=== PATIENT | female | born 1960 | race Caucasian/White ===

== ENCOUNTER 2020-03-08 06:27 | Day surgery (SDC) | payer OTHER, SELFPAY ==
--- NOTE | 2020-03-06 08:56 | HO.ANESPROP2 ---
Documented by User: Katharina Thakur 03/06/20 09:00 HPI - Anesthesia Eval Consult details Narrative: 60yo F for EGD and Colonoscopy [facility] Past Medical History Medical History Acid reflux HTN (hypertension) Surgical History Surgical History Hx of tonsillectomy Social History Social History Advance Directives: No Advance Directives Information Provided: No Meds Allergies Allergy/AdvReac Type Severity Reaction Status Date / Time No Known Allergies Allergy Verified 03/06/20 08:59 Home Medications Medication Instructions Recorded Confirmed Type amlodipine 1 tab PO DAILY 03/05/20 03/05/20 History hydrochlorothiazide 1 tab PO DAILY 03/05/20 03/05/20 History losartan 1 tab PO DAILY 03/05/20 03/05/20 History multivitamin 1 tab PO DAILY 03/05/20 03/05/20 History omeprazole 1 cap PO DAILY 03/05/20 03/05/20 History Exam Exam Date and Time: March 06, 2020 0856 Assessment and Plan Assessment Anesthesia Assessment: Chart Reviewed (03/06/20 ) Documented by User: Xena Cano 03/08/20 07:22 [facility] Past Medical History Medical History Acid reflux HTN (hypertension) Surgical History Surgical History Hx of tonsillectomy Social History Social History Advance Directives: No Advance Directives Information Provided: No Meds Allergies Allergy/AdvReac Type Severity Reaction Status Date / Time No Known Allergies Allergy Verified 03/06/20 08:59 Home Medications Medication Instructions Recorded Confirmed Type amlodipine 1 tab PO DAILY 03/05/20 03/05/20 History hydrochlorothiazide 1 tab PO DAILY 03/05/20 03/05/20 History losartan 1 tab PO DAILY 03/05/20 03/05/20 History multivitamin 1 tab PO DAILY 03/05/20 03/05/20 History omeprazole 1 cap PO DAILY 03/05/20 03/05/20 History Exam Airway TM Dist: >3cm Neck ROM: Full Heart: RRR Lungs: CTA BL
[2020-03-08 06:55] VITALS: BP 133/79; PULSE 69; RESP 16; TEMP 36.3; O2SAT 100
[2020-03-08 07:21] VITALS: BMI 28.0
[2020-03-08] MEDS: Lactated Ringers 1,000 ML 50 ML IVCONT (07:31)
--- NOTE | 2020-03-08 07:36 | PC.NURSE ---
NO DRESSINGS. STERILE H2O USED IRRIGATION
[2020-03-08 08:38] VITALS: BP 107/62; PULSE 72; RESP 16; TEMP 36.6; O2SAT 99
[2020-03-08 08:52] VITALS: BP 143/94; PULSE 63; RESP 16; TEMP 36.6; O2SAT 100
--- NOTE | 2020-03-08 08:52 | PM.OP ---
Brief Operative Note Date of procedure: 03/08/20 Pre-op diagnosis: Colon cancer screening Post-op diagnosis: other (Gastritis, colon polyps, diverticulosis) Procedure: FLEXIBLE TRANSORAL UPPER GASTROINTESTINAL ENDOSCOPY AND COLONOSCOPY PROCEDURE NOTE UPPER ENDOSCOPY Consent: Indications for the procedure and potential complications of bleeding, perforation, reaction to medications and missed diagnosis were discussed with the patient and informed consent was obtained. Instrument: Olympus GIF H 190 mid size upper endoscope Monitoring: Vital signs and clinical assessment, continuous EKG monitoring, Pulse oximetry, Carbon Dioxide monitoring and blood pressure monitoring were done throughout the procedure. Procedure: The patient was placed in the left lateral decubitis position and pre-procedure medications were administered and a bite block was placed. The endoscope was inserted into the mouth and advanced under direct vision to the third part of duodenum. A careful inspection was made as the upper endoscope was withdrawn including a retroflexed examination of the proximal stomach; Findings and interventions are described below. Findings: Larynx: Normal Esophagus: GE junction at 40 cms. No esophagitis or Noe s. Stomach: Minimal gastric erythema. Biopsies were obtained. Grade 2 flap valve on retroflexed examination of the cardia. Duodenum: Normal bulb and descending duodenum Intervention: Biopsies as noted above Colonoscopy Instrument: Olympus PCF H 190 L variable stiffness pediatric colonoscope Monitoring: Vital signs and clinical assessment, continuous EKG monitoring, Pulse oximetry, Carbon Dioxide monitoring and blood pressure monitoring were done throughout the procedure. Colon withdrawl time was 18 minutes. Procedure: The patient was placed in the left lateral decubitis position and pre-procedure medications were administered. After a digital rectal examination of the ano-rectum, the video colonoscope was inserted into the rectum and advanced through the colon to the cecum. The colonoscope was slowly withdrawn in a retrograde panoramic fashion and the colon mucosa was carefully examined including a retroflexed view of the rectum. Findings and interventions are described below. Procedure Difficulty: Without difficulty Findings: Terminal Ileum Not evaluated Cecum - A 3-4 mm sessile polyp was removed with the cold biopsy. Ascending Colon - normal Transverse Colon - 4-5 mm diminutive appearing polyp was removed with the cold biopsy And moderate diverticulosis Descending Colon Moderate diverticulosis. Sigmoid Colon Severe diverticulosis with luminal narrowing. Rectum Normal Anorectum - normal Colon preparation: excellent. Impression and Post Procedure Diagnosis: Endoscopy Findings: ESOPHAGUS: No esophagitis or Noe s. STOMACH: Minimal Gastritis. Colonoscopy Findings: Two polyps were removed. Moderate to severe diverticulosis seen in the transverse and left colon Plan: Await pathology results Patient is scheduled for a FU appointment in the GI [facility] on 04/01/20 with ANGEL Stapleton. Repeat Colonoscopy interval based on path results - in 5 years if polyps are adenomatous. Above findings were reviewed with the patient and handout on colon polyps and diverticulosis was provided. Anesthesia: MAC (Dr Pike) Surgeon: Jose White Pathology: other (A. gastric antrum, B. Cecal polyp, C. TC polyp) Condition: stable Disposition: PACU
[2020-03-08 08:53] VITALS: BP 124/74; PULSE 64; RESP 16; O2SAT 100
--- NOTE | 2020-03-08 10:16 | HO.ANESPROP2 ---
[facility] Past Medical History Medical History Acid reflux HTN (hypertension) Surgical History Surgical History Hx of tonsillectomy Social History Social History Advance Directives: No Advance Directives Information Provided: No Meds Allergies Allergy/AdvReac Type Severity Reaction Status Date / Time No Known Allergies Allergy Verified 03/06/20 08:59 Home Medications Medication Instructions Recorded Confirmed Type amlodipine 1 tab PO DAILY 03/05/20 03/05/20 History hydrochlorothiazide 1 tab PO DAILY 03/05/20 03/05/20 History losartan 1 tab PO DAILY 03/05/20 03/05/20 History multivitamin 1 tab PO DAILY 03/05/20 03/05/20 History omeprazole 1 cap PO DAILY 03/05/20 03/05/20 History Exam Exam Date and Time: March 08, 2020 1016 Height,Weight and Vital Signs: Height 5 ft 9 in Weight 86.183 kg Last Vital Signs Temp 97.8 F 03/08/20 08:52 Pulse 64 03/08/20 08:53 Resp 16 03/08/20 08:53 BP 124/74 03/08/20 08:53 Pulse Ox 100 03/08/20 08:53 Assessment and Plan Assessment Anesthesia Assessment: Anesthesia Plan Discussed and Consent Obtained Final Anesthetic Review NPO: Yes ASA Class: II Final Preanesthetic Review: No Changes in Pt Med Stat, Meds & Allergies Reviewed, Consent Obtained/Reviewed and Med/Surg/Anes Hx Reviewed Patient Risk: Low Procedure Risk: Low Anesthetic Plan Anesthetic Plan: MAC: Disposition: Standard PACU
== END 2020-03-08 10:04 | disposition home or self-care (01) ==
PROVIDERS: PCP Internal Medicine; Visit Provider Internal Medicine Gastroenterology
PROC: 0DJD8ZZ Inspection of Lower Intestinal Tract, Via Natural or Artificial Opening Endoscopic (ICD-10-PCS; CPT 45378; principal; 2020-03-08 07:30)
DX: Z12.11 Encounter for screening for malignant neoplasm of colon (principal); D12.0 Benign neoplasm of cecum; K63.5 Polyp of colon; K57.30 Diverticulosis of large intestine without perforation or abscess without bleeding; K21.9 Gastro-esophageal reflux disease without esophagitis; K29.70 Gastritis, unspecified, without bleeding; I10 Essential (primary) hypertension; Z79.899 Other long term (current) drug therapy
CPT/HCPCS: 45380; 88305; 88342

== ENCOUNTER → 2020-04-01 09:35 | Outpatient (BNVA) | payer OTHER, SELFPAY | PROVIDERS: PCP Internal Medicine; Referring Provider Internal Medicine; Visit Provider Physician Assistant | DX: K57.30 Diverticulosis of large intestine without perforation or abscess without bleeding (principal); D12.6 Benign neoplasm of colon, unspecified; K21.9 Gastro-esophageal reflux disease without esophagitis; Z98.890 Other specified postprocedural states | CPT/HCPCS: 99213 ==

== ENCOUNTER 2020-11-13 11:56 | Outpatient (REF) | payer OTHER, SELFPAY ==
--- NOTE | ~2020-11-13 | MM_ITS ---
EXAMINATION: MM SCREENING DIGITAL BREAST TOMOSYNTHESIS, BILATERAL CLINICAL INFORMATION: Screening. Asymptomatic. The lifetime risk of breast cancer based on the Tyrer-Cuzick Model is 10.5%. COMPARISON: Mammography: July 03, 2019 TECHNIQUE: Digital breast tomosynthesis is performed in both the craniocaudal and mediolateral oblique views along with computer-aided detection (CAD). Synthesized 2D images are generated from the tomosynthesis. FINDINGS: The breasts are heterogeneously dense, which may obscure small masses (ACR BI-RADS breast composition Category c). There are no significant masses, abnormal calcifications, or other abnormalities. MM/MM tomosynthesis screening BI IMPRESSION: There are no significant changes from prior study. ASSESSMENT: BI-RADS 1: Negative RECOMMENDATION: Routine annual mammography screening. This patient's information was entered into a reminder system with a target due date for their next mammogram.
== END 2020-11-13 11:57 | disposition home or self-care (01) ==
LOC: HO.MAMMO 11:56
PROVIDERS: Visit Provider Internal Medicine
DX: Z12.31 Encounter for screening mammogram for malignant neoplasm of breast (principal)
CPT/HCPCS: 77063; 77067

== ENCOUNTER 2021-08-27 08:08 | Outpatient (REF) | payer OTHER, SELFPAY ==
--- NOTE | ~2021-08-27 | XR_ITS ---
EXAMINATION: XR KNEE, RIGHT CLINICAL INFORMATION: Posterior right knee pain. COMPARISON: None TECHNIQUE: 4 views of the right knee. FINDINGS: Mild medial compartment joint space narrowing. Tiny tricompartmental marginal osteophytes. No osseous erosion. No fracture or dislocation. Superior patellar enthesophyte. XR/XR knee RT 4V IMPRESSION: Mild tricompartmental osteoarthritis.
[2021-08-27 08:34] LABS: MANUAL DIFF FLAG NO
[2021-08-27 08:45] LABS: Basophils Percent Auto 0.6 % (0-2); Eosinophils Absolute Auto 0.1 X10*3/uL (0.0-0.4); Eosinophils Percent Auto 2.1 % (0-4); Hematocrit 40.1 % (37.0-47.0); Imm Gran Abs Auto 0.02 X10*3/uL (0.00-0.03); Imm Gran Pct Auto 0.3 % (0.0-0.4); Lymphocytes Absolute Auto 1.7 X10*3/uL (1.2-4.9); Lymphocytes Percent Auto 26.2 % (20-40); Mean Corpuscular HGB Conc 32.4 g/dl (31.0-35.0); Mean Corpuscular Hemoglobin 28.6 pg (27.0-33.0); Mean Corpuscular Volume 88.3 fL (80.0-98.0); Mean Platelet Volume 11.6 fL (9.4-12.3); Monocytes Absolute Auto 0.6 X10*3/uL (0.1-1.2); Monocytes Percent Auto 9.1 % (2-11); Neutrophils Absolute Auto 3.9 x10*3/uL (2.0-8.3); Neutrophils Percent Auto 61.7 % (45-73); Platelet Count 234 X10*3/uL (160-400); Red Blood Count 4.54 X10*6/uL (4.20-5.50); Red Cell Distribution Width 14.9 % (11.0-16.0); White Blood Count 6.3 X10*3/uL (4.8-10.8)
[2021-08-27 08:54] LABS: Estimated Average Glucose 114 mg/dL; Hemoglobin A1c % 5.6 %
[2021-08-27 09:07] LABS: Creatinine Urine 43.02 mg/dL; Microalbumin Urine < 5.0 mg/L
[2021-08-27 09:31] LABS: Alanine Aminotransferase 28 U/L (0-31); Albumin Level 4.3 g/dL (3.5-5.0); Alkaline Phosphatase 78 U/L (39-117); Anion Gap 11 (12-20); Aspartate Amino Transferase 25 U/L (5-31); Bilirubin Total 0.8 mg/dL (0.0-1.0); Blood Urea Nitrogen 19 mg/dL (9-16); Calcium 9.9 mg/dL (8.4-10.2); Carbon Dioxide 31 mmol/L (22-29); Chloride 104 mmol/L (96-108); Cholesterol 231 mg/dL; Estimated Glomerular Filt Rate > 60; Glucose Random 108 mg/dL (60-115); HDL Cholesterol 59 mg/dL; LDL Cholesterol Calculated 159 mg/dl; Potassium 4.1 mmol/L (3.3-5.1); Sodium 142 mmol/L (135-145); Total Protein 7.2 g/dL (6.5-8.0); Triglycerides 67 mg/dL
[2021-08-27 09:39] LABS: TSH reflex Free T4 2.37 uIU/mL (0.32-4.0)
[2021-08-27 09:43] LABS: Vitamin B12 596 pg/mL (200-900)
[2021-08-28 14:35] LABS: Vitamin D 25-OH Total 25.3 ng/mL (>30)
== END 2021-08-27 08:09 | disposition home or self-care (01) ==
LOC: HO.LAB 08:08
PROVIDERS: PCP Internal Medicine; Visit Provider Internal Medicine
DX: M25.561 Pain in right knee (principal); I10 Essential (primary) hypertension; R73.03 Prediabetes
CPT/HCPCS: 36415; 73564; 80053; 80061; 82043; 82306; 82607; 83036; 84443; 85025

== ENCOUNTER 2021-10-03 07:30 | Outpatient (REF) | payer OTHER, SELFPAY ==
--- NOTE | ~2021-10-03 | XR_ITS ---
EXAMINATION: XR KNEE AP STANDING CLINICAL INFORMATION: Knee pain COMPARISON: Right knee radiograph 08/27/2021 TECHNIQUE: AP bilateral standing view of the knees was obtained. XR/XR knee standing BI FINDINGS/IMPRESSION: No acute fracture or dislocation appreciated however only a single view was obtained which limits evaluation. Mild to moderate degenerative changes of the knees with borderline narrowing of the medial compartment joint spaces and small bilateral medial compartment osteophytes. Soft tissues are unremarkable.
== END 2021-10-03 07:31 | disposition home or self-care (01) ==
LOC: HO.HOSX 07:30
PROVIDERS: Visit Provider Physician Assistant
DX: M17.11 Unilateral primary osteoarthritis, right knee (principal)
CPT/HCPCS: 20610; 73565; J1040

== ENCOUNTER 2021-11-14 13:02 | Outpatient (REF) | payer OTHER, SELFPAY ==
--- NOTE | ~2021-11-14 | MM_ITS ---
EXAMINATION: MM SCREENING DIGITAL BREAST TOMOSYNTHESIS, BILATERAL CLINICAL INFORMATION: Screening. Asymptomatic. The lifetime risk of breast cancer based on the Tyrer-Cuzick Model is 9%. COMPARISON: Mammography: 11/13/2020, 07/03/2019 (new baseline). TECHNIQUE: Digital breast tomosynthesis is performed in both the craniocaudal and mediolateral oblique views along with computer-aided detection (CAD). Synthesized 2D images are generated from the tomosynthesis. FINDINGS: There are scattered areas of fibroglandular density (ACR BI-RADS breast composition Category b). There are no significant masses, abnormal calcifications, or other abnormalities. Parenchymal pattern is similar to prior exams. No developing density or interval architectural abnormality. The axilla and skin contours are unremarkable. MM/MM tomosynthesis screening BI IMPRESSION: No mammographic evidence of malignancy. ASSESSMENT: BI-RADS 1: Negative RECOMMENDATION: Routine annual mammography screening. This patient's information was entered into a reminder system with a target due date for their next mammogram.
== END 2021-11-14 13:03 | disposition home or self-care (01) ==
LOC: HO.MAMMO 13:02
PROVIDERS: PCP Internal Medicine; Visit Provider Internal Medicine
DX: Z12.31 Encounter for screening mammogram for malignant neoplasm of breast (principal)
CPT/HCPCS: 77063; 77067

== ENCOUNTER → 2022-03-27 12:36 | Outpatient (BNVA) | payer OTHER, SELFPAY | PROVIDERS: PCP Internal Medicine; Visit Provider Physician Assistant | DX: M17.11 Unilateral primary osteoarthritis, right knee (principal) | CPT/HCPCS: 20610; J1040 ==

== ENCOUNTER 2023-01-12 10:24 | Outpatient (REF) | payer OTHER, SELFPAY ==
--- NOTE | ~2023-01-12 | MM_ITS ---
EXAMINATION: MM SCREENING DIGITAL BREAST TOMOSYNTHESIS, BILATERAL CLINICAL INFORMATION: Screening. Asymptomatic. The lifetime risk of breast cancer based on the Tyrer-Cuzick Model is 9.8%. COMPARISON: Mammography: 11/14/2021, 11/13/2020, 07/03/2019. TECHNIQUE: Digital breast tomosynthesis is performed in both the craniocaudal and mediolateral oblique views along with computer-aided detection (CAD). Synthesized 2D images are generated from the tomosynthesis. FINDINGS: The breasts are heterogeneously dense, which may obscure small masses (ACR BI-RADS breast composition Category c). There are no suspicious masses, suspicious grouped calcifications, or areas of architectural distortion. The parenchymal pattern is stable from prior exams. There are no skin changes. MM/MM tomosynthesis screening BI IMPRESSION: No mammographic evidence of malignancy. ASSESSMENT: BI-RADS BI-RADS 1 - Negative RECOMMENDATION: Routine annual mammography screening. 1 year F/U This examination should not preclude the clinical evaluation of a suspicious palpable abnormality. This patient's information was entered into a reminder system with a target due date for their next mammogram.
== END 2023-01-12 10:25 | disposition home or self-care (01) ==
LOC: HO.MAMMO 10:24
PROVIDERS: PCP Registered Nurse; Visit Provider Registered Nurse
DX: Z12.31 Encounter for screening mammogram for malignant neoplasm of breast (principal)
CPT/HCPCS: 77063; 77067

== ENCOUNTER → 2023-01-12 10:45 | Outpatient (BNV) | payer OTHER, SELFPAY | PROVIDERS: PCP Registered Nurse; Visit Provider Radiology Diagnostic Radiology | DX: Z12.31 Encounter for screening mammogram for malignant neoplasm of breast (principal) | CPT/HCPCS: 77063; 77067 ==

== ENCOUNTER 2023-03-09 12:15 | Outpatient (AMB) | payer OTHER, SELFPAY ==
--- NOTE | 2023-03-09 12:24 | MHC.OFFVIS ---
Intake Vital Signs 03/09/23 12:27 Height 5 ft 10 in Weight 196 lb BMI 28.1 BP 120/70 Intake Visit Reasons: Annual Intake Note: no concerns Clinical Documentation Improvement Specialist Required: No Information Interpreted: non-clinical & clinical Product Technology Scientist: Product Technology Scientist Present (Malina THURMAN) Accompanied by: Self / Same As Patient Allergies No Known Allergies Allergy (Verified 03/09/23 12:28) Post menopausal: Yes HPI HPI Comments History of Present Illness Details Presenting for annual exam. No complaints. Last Pap/HPV was negative in 07/27 Last Mammogram was BI-RADS 2 in 01/27 Last Colonoscopy was done in 03/26, the recommendation was to repeat in 5 [facility] Medical History Diverticulosis large intestine w/o perforation or abscess w/o bleeding Adenomatous colon polyp Acid reflux HTN (hypertension) Surgical History Hx of endoscopy History of colonoscopy Hx of tonsillectomy Family History Father History of high blood pressure History of diabetes mellitus Mother History of high blood pressure History of diabetes mellitus Social History (Updated 03/09/23 @ 12:29 by Malina Barreto CMA) Household Members Other:: daughter Housing: House Alcohol intake: never Patient Tobacco Use Status: Former Tobacco user Current occupational status: employed 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 Sexually active: No Sexual orientation: Straight/Heterosexual Gender identity: Female Female Reproductive History Menstrual Date of Mammogram: 01/12/23 Review of Systems Const All systems reviewed & are unremarkable except as noted in HPI and below Card Reports as per HPI Resp Reports as per HPI GI Reports as per HPI and Reports no additional complaints Reports as per HPI Physical Exam Vital Signs: Last Vital Signs BP 120/70 03/09/23 12:27 BMI result Body Mass Index 28.1 Const General: cooperative, healthy appearing and comfortable Chest Chest palpation & inspection: normal inspection of the chest and normal palpation of entire chest wall Breast/axilla inspection: normal inspection of the breasts and normal inspection of the axillae Breast/axilla palpation: normal palpation of the breasts, normal palpation of the axillae and no axillary lymphadenopathy Resp Effort & Inspection: normal respiratory effort Auscultation: clear to auscultation bilaterally Percussion: percussion normal Cardio Palpation: normal PMI Rate: regular rate Rhythm: regular rhythm Heart sounds: no murmurs and no rubs Peripheral pulses: Peripheral pulses 2+ throughout GI Inspection: Yes normal to inspection Palpation (GI): Soft to palpation, nontender, no guarding, not rigid and No hepatosplenomegaly present Percussion: Yes normal to percussion Auscultation: normal bowel sounds Rectal Exam - Female: deferred General: Yes bladder normal to palpation External Female Exam: No lesion Speculum Exam - Vagina: normal appearance of the vagina, normal palpation, normal vaginal discharge and not erythematous Speculum Exam - Cervix: normal palpation and Other cervical findings present (11:00, 4 and 07:00 o'clock cervical lesions) Bimanual exam- vagina & uterus: normal bimanual exam, normal palpation, uterine size normal, bladder normal to palpation, consistency normal and normal palpation Bimanual Exam- Adnexa, other: normal adnexae, no masses and no tenderness Office Procedures MEDICAL DELIVERY TECHNICIAN Biopsy Before the procedure was started discussed with the patient the procedure, alternatives & all the risks associated with the procedure (bleeding, infection, injury to vagina, bladder, vessels, possible need for transfusion with all its risks) then patient signed the consent GC/CT was co testing done Speculum inserted Cervical lesions identified at 11+7+4 o?clock, cervical biopsies taken from 11+7+4 o?clock, ECC done afterwards. Monsel solution used for hemostasis. The patient tolerated well . At the end the patient was instructed to call if temp>100.4, abdominal pain, n/v, bleeding; The patient was given the following instructions: nothing per vagina, no intercourse or bath tub use. All questions answered the patient verbalized understanding. Instructed the patient to make an appointment in 2 weeks for follow-up This note was generated with a voice recognition program. Some errors may have been overlooked during the review of this note. Sometimes these errors may affect the content or meaning of a given sentence. 17711-Rlsufm of Cervix Procedure code (CPT) selection complete Assessment & Plan Assessment & Plan (1) Well woman exam: Code(s): Z01.419 - Encounter for gynecological examination (general) (routine) without abnormal findings Plan: Co testing done because of cervical lesion a pelvic exam Counseled the patient about the recommended dietary allowance of 1200 mg of Calcium & 600 IU of vitamin D. Instructions given the patient to schedule next screen Mammogram in 01/28. The patient is up-to-date for screening colonoscopy till 03/31 . The patient was instructed to perform monthly self-breast exams and schedule annual exam in a year. All questions answered and the patient verbalized understanding. (2) Cervical lesion: Comment: 11:00 , 4 and 7 o'clock cervical lesions Code(s): N88.9 - Noninflammatory disorder of cervix uteri, unspecified Plan: GC/CT done, co testing done, cervical biopsies with ECC done, see procedure note. Instructions given the patient to schedule a 2 week follow-up appointment. Orders: Orders AMB MEDICAL DELIVERY TECHNICIAN Biopsy Today N88.9 - Noninflammatory disorder of cervix uteri, unspecified Coding Level of Care Code Est Pt Prev Care 40-64y(10791) Diagnoses Well woman exam Z01.419 Cervical lesion N88.9 CPT Codes MEDICAL DELIVERY TECHNICIAN Biopsy - CPT: 22291-Ioisnw of Cervix ([id number])
[2023-03-09 12:27] VITALS: BP 120/70; BMI 28.1
== END 2023-03-09 12:49 | disposition home or self-care (01) ==
PROVIDERS: PCP Registered Nurse; Visit Provider Obstetrics & Gynecology
DX: Z01.411 Encounter for gynecological examination (general) (routine) with abnormal findings (principal); N88.9 Noninflammatory disorder of cervix uteri, unspecified
CPT/HCPCS: 57500; 99396

== ENCOUNTER 2023-03-09 12:15 | Outpatient (REF) | payer OTHER, SELFPAY ==
[2023-03-09 16:58] LABS: CT PCR NOT DETECTED (Not Detect.); NG PCR NOT DETECTED (Not Detect.)
[2023-03-11 20:54] LABS: HPV mRNA E6/E7 rflx Not Detected (Not Detected)
== END 2023-03-09 12:16 | disposition home or self-care (01) ==
LOC: HO.LNP 12:15
PROVIDERS: PCP Registered Nurse; Visit Provider Obstetrics & Gynecology
DX: Z01.419 Encounter for gynecological examination (general) (routine) without abnormal findings (principal); N88.9 Noninflammatory disorder of cervix uteri, unspecified; Z20.2 Contact with and (suspected) exposure to infections with a predominantly sexual mode of transmission
CPT/HCPCS: 0353U; 57500; 87624; 88142; 88300; 88305

== ENCOUNTER 2023-04-19 12:14 | Outpatient (REF) | payer OTHER, SELFPAY ==
--- NOTE | ~2023-04-19 | XR_ITS ---
EXAMINATION: XR KNEE, RIGHT CLINICAL INFORMATION: Chronic pain in the right knee COMPARISON: Bilateral knees from 10/03/2021 and 4 views of right knee from 08/28/2019 TECHNIQUE: Four views of the right knee. FINDINGS: There is no significant interval change in appearance of mild narrowing of the medial compartment of right knee joint and mild spurring of medial and lateral tibial plateau. There is no joint effusion seen. There is patellar enthesopathy and spurring. There is small joint effusion seen. XR/XR knee RT 4V IMPRESSION: Mild 3 compartmental degenerative changes
== END 2023-04-19 12:15 | disposition home or self-care (01) ==
LOC: HO.HHCX 12:14
PROVIDERS: Visit Provider Registered Nurse
DX: M25.561 Pain in right knee (principal); G89.29 Other chronic pain
CPT/HCPCS: 73564

== ENCOUNTER 2023-10-12 08:44 | Outpatient (REF) | payer OTHER, SELFPAY ==
[2023-10-12 11:52] LABS: MANUAL DIFF FLAG NO
[2023-10-12 12:07] LABS: Basophils Percent Auto 0.7 % (0-2); Eosinophils Absolute Auto 0.1 X10*3/uL (0.0-0.4); Eosinophils Percent Auto 1.1 % (0-4); Estimated Average Glucose 114 mg/dL; Hematocrit 43.8 % (37.0-47.0); Hemoglobin 14.6 g/dl (12.0-16.0); Hemoglobin A1c % 5.6 % (<6.0); Imm Gran Abs Auto 0.01 X10*3/uL (0.00-0.03); Imm Gran Pct Auto 0.2 % (0.0-0.4); Lymphocytes Absolute Auto 1.2 X10*3/uL (1.2-4.9); Lymphocytes Percent Auto 27.1 % (20-40); Mean Corpuscular HGB Conc 33.3 g/dl (31.0-35.0); Mean Corpuscular Hemoglobin 29.5 pg (27.0-33.0); Mean Corpuscular Volume 88.5 fL (80.0-98.0); Mean Platelet Volume 12.3 fL (9.4-12.3); Monocytes Absolute Auto 0.4 X10*3/uL (0.1-1.2); Neutrophils Absolute Auto 2.8 x10*3/uL (2.0-8.3); Neutrophils Percent Auto 61.9 % (45-73); Platelet Count 228 X10*3/uL (160-400); Red Blood Count 4.95 X10*6/uL (4.20-5.50); Red Cell Distribution Width 14.6 % (11.0-16.0); White Blood Count 4.6 X10*3/uL (4.8-10.8)
[2023-10-12 12:48] LABS: Alanine Aminotransferase 15 U/L (0-31); Albumin Level 4.2 g/dL (3.5-5.0); Alkaline Phosphatase 66 U/L (39-117); Anion Gap 14 (12-20); Aspartate Amino Transferase 20 U/L (5-31); Bilirubin Total 0.8 mg/dL (0.0-1.0); Blood Urea Nitrogen 11 mg/dL (9-16); Calcium 9.8 mg/dL (8.4-10.2); Carbon Dioxide 28 mmol/L (22-29); Chloride 104 mmol/L (96-108); Cholesterol 144 mg/dL (<200); Estimated Glomerular Filt Rate > 60; Glucose Random 109 mg/dL (60-115); HDL Cholesterol 49 mg/dL (>40); LDL Cholesterol Calculated 84 mg/dL (<100); Potassium 3.8 mmol/L (3.3-5.1); Sodium 142 mmol/L (135-145); Total Protein 7.5 g/dL (6.5-8.0); Triglycerides 57 mg/dL (<150)
[2023-10-12 12:50] LABS: TSH reflex Free T4 1.46 uIU/mL (0.32-4.0)
[2023-10-12 12:55] LABS: Reflex LDLD? No
== END 2023-10-12 08:45 | disposition home or self-care (01) ==
LOC: HO.HHCL 08:44
PROVIDERS: Visit Provider Family Medicine
DX: R10.13 Epigastric pain (principal); I10 Essential (primary) hypertension; E78.5 Hyperlipidemia, unspecified; Z83.3 Family history of diabetes mellitus
CPT/HCPCS: 36415; 80053; 80061; 83036; 84443; 85025

== ENCOUNTER 2024-02-03 09:15 | Outpatient (REF) | payer OTHER, SELFPAY ==
--- NOTE | ~2024-02-03 | XR_ITS ---
EXAMINATION: XR KNEE, BILATERAL CLINICAL INFORMATION: Right knee pain COMPARISON: Radiographs 04/19/2023 TECHNIQUE: AP standing view of both knees. Lateral and sunrise views of the right knee. FINDINGS: Moderate medial compartment narrowing of the right knee with small marginal osteophytes of all 3 compartments. No fracture. No significant joint effusion. Mild medial compartment osteoarthritis of the left knee. XR/XR knee LT 3V IMPRESSION: Moderate medial compartment osteoarthritis of the right knee. Mild medial compartment osteoarthritis of the left knee. Electronically signed by: Vishal Aparicio MD 02/09/2024 10:19 AM EDT
--- NOTE | ~2024-02-03 | XR_ITS ---
EXAMINATION: XR KNEE, BILATERAL CLINICAL INFORMATION: Right knee pain COMPARISON: Radiographs 04/19/2023 TECHNIQUE: AP standing view of both knees. Lateral and sunrise views of the right knee. FINDINGS: Moderate medial compartment narrowing of the right knee with small marginal osteophytes of all 3 compartments. No fracture. No significant joint effusion. Mild medial compartment osteoarthritis of the left knee. XR/XR knee RT 1V IMPRESSION: Moderate medial compartment osteoarthritis of the right knee. Mild medial compartment osteoarthritis of the left knee. Electronically signed by: Vishal Aparicio MD 02/09/2024 10:19 AM EDT
== END 2024-02-03 09:16 | disposition home or self-care (01) ==
LOC: HO.HOSX 09:15
PROVIDERS: PCP Family Medicine; Visit Provider Physician Assistant
DX: M25.562 Pain in left knee (principal); M25.561 Pain in right knee; M17.0 Bilateral primary osteoarthritis of knee
CPT/HCPCS: 20610; 73560; 73562; J1010

== ENCOUNTER 2024-02-03 09:58 | Outpatient (AMB) | payer OTHER, SELFPAY ==
[2024-02-03 10:02] VITALS: BMI 28.1
--- NOTE | 2024-02-03 10:02 | A.OFFVIS_ITS ---
Vital Signs 02/03/24 10:02 Height 5 ft 10 in Weight 196 lb BMI 28.1 Intake Visit Reasons: NewProb- chronic left knee pain Intake Note: Elzbieta is a 63 year old female who presents today for a evaluation for her left knee pain, last injection was on the right knee on 03/27/22. Patient reports ongoing pain for about 3 - 4 months. She mentions when she is active her knee do esn't hurt, however when she is resting her pain comes back. She tried and failed + 3 months of ice, knee braces, Tylenol/ibuprofen, and lidocaine patches. Allergies No Known Allergies Allergy (Verified 02/03/24 10:07) HPI HPI NewProb- chronic left knee pain: Details: 63-year-old female who presents in the office today for a follow-up of left knee pain. I last saw the patient in the office on 03/27/22 when she received a cortisone injection in the right knee. ? ? While in the office today, the patient reports ongoing pain since 08/2023. She reports pain when going up and down the stairs. She claims she must stop and rest while using stairs due to pain. She states when she is active, she does not have pain but when she is at rest the pain returns. She states her pain is in the front of the left knee and radiates to the back.? ? The patient reports trial and failure of icing, knee braces, Tylenol, ibuprofen, and lidocaine patches. 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 No ecchymosis, erythema, or joint effusion. No tenderness to palpation along the medial or lateral joint lines. Full knee extension and flexion. Crepitus felt with ROM. NVI.?? Office Procedures Joint Injection/Aspiration Joint Injection/Aspiration Primary Site: left knee Prep: site was prepped using aseptic technique, ethochloride spray was applied and injection warnings given Injected: 80 mg of, DepoMedrol, with 8 mL of (2% plain lido) and in the joint Approach Used: anterolateral Procedure: The patient tolerated the procedure well, but had some pain with the injection and there was some relief with the local anesthesia Coding 14996 - Large joint Procedure code (CPT) selection complete Assessment & Plan Assessment & Plan (1) Osteoarthritis of left knee: Code(s): M17.12 - Unilateral primary osteoarthritis, left knee Category: Medical Plan Ms. Faulkneris a 63-year-old female who presents in the office today for a follow-up of left knee pain. I last saw the patient in the office on 03/27/22 when she received a cortisone injection in the right knee. ? ? While in the office today, the patient reports ongoing pain since 08/2023. She reports pain when going up and down the stairs. She claims she must stop and rest while using stairs due to pain. She states when she is active, she does not have pain but when she is at rest the pain returns. She states her pain is in the front of the left knee and radiates to the back.? ? The patient reports trial and failure of icing, knee braces, Tylenol, ibuprofen, and lidocaine patches.? ? The patient was offered a cortisone injection in the left knee with 80 mg of Depo-Medrol. The patient was explained the risks, benefits, and alternatives to receiving this injection. After receiving consent for the injection, the patient had the procedure done while in the office today. The patient tolerated the procedure well with no complications.? ? We discussed the role of gel injections or possible nerve blocks with Pain Management. We also discussed the possibility of total knee arthroplasty in the future but do not feel that is an option at this time. I did recommend the use of KT taping, as the patient states this has helped her bilateral knees in the past. Follow-up will be PRN, or sooner if needed. ? ? MRI disc was brought to the office by the patient today, 02/03/24, and reviewed by me, Eleonora Weiss PA-C, which revealed: Arthritic changes. ? Orders: Orders XR knee RT 1V Today M25.569 - Pain in unspecified knee XR knee LT 3V Today M25.569 - Pain in unspecified knee Patient Instructions: Scribed by Karen Saldana electromedical equipment repairer, for Eleonora Weiss PA-C on 02/03/2024 at 10:23 am, EST.? Coding Level of Care Code Est Pt Level 3 (30761) Complex EM visit Add On G2211 Diagnoses Osteoarthritis of left knee M17.12 CPT Codes Coding - 99940 Large joint: 46571 - Large joint ([id number])
== END 2024-02-03 10:19 | disposition home or self-care (01) ==
PROVIDERS: PCP Family Medicine; Visit Provider Physician Assistant
DX: M17.12 Unilateral primary osteoarthritis, left knee (principal)
CPT/HCPCS: 20610; 99213

== ENCOUNTER 2024-02-08 08:40 | Outpatient (REF) | payer OTHER, SELFPAY ==
--- NOTE | ~2024-02-08 | MM_ITS ---
EXAMINATION: MM SCREENING DIGITAL BREAST TOMOSYNTHESIS, BILATERAL CLINICAL INFORMATION: Screening. Asymptomatic. COMPARISON: Mammography: Comparison is made with available priors TECHNIQUE: Digital breast mammography with tomosynthesis is performed in both the craniocaudal and mediolateral oblique views along with computer-aided detection (CAD). FINDINGS: The breasts are heterogeneously dense, which may obscure small masses (ACR BI-RADS breast composition Category c). There are no significant masses, abnormal calcifications, or other abnormalities. MM/MM tomosynthesis screening BI IMPRESSION: No mammographic evidence of malignancy. ASSESSMENT: BI-RADS BI-RADS 1 - Negative RECOMMENDATION: Routine annual mammography screening. 1 year F/U This examination should not preclude the clinical evaluation of a suspicious palpable abnormality. This patient's information was entered into a reminder system with a target due date for their next mammogram. Electronically signed by: Allyn Milner DO 02/26/2024 10:38 PM EDT
== END 2024-02-08 08:41 | disposition home or self-care (01) ==
LOC: HO.MAMMO 08:40
PROVIDERS: PCP Family Medicine; Visit Provider Family Medicine
DX: Z12.31 Encounter for screening mammogram for malignant neoplasm of breast (principal)
CPT/HCPCS: 77063; 77067

== ENCOUNTER → 2024-02-08 08:45 | Outpatient (BNV) | payer OTHER, SELFPAY | PROVIDERS: PCP Family Medicine; Visit Provider Internal Medicine | DX: Z12.31 Encounter for screening mammogram for malignant neoplasm of breast (principal) | CPT/HCPCS: 77063; 77067 ==

== ENCOUNTER 2024-04-20 09:01 | Outpatient (AMB) | payer OTHER, SELFPAY ==
--- NOTE | 2024-04-20 09:03 | A.OFFVIS_ITS ---
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 No complaints. Last Pap/HPV was negative in 03/29 Last Mammogram was BI-RADS 1 in 02/28 Last Colonoscopy was done in 03/26 [facility] Medical History Diverticulosis large intestine w/o perforation or abscess w/o bleeding Adenomatous colon polyp Acid reflux HTN (hypertension) Surgical History Hx of endoscopy History of colonoscopy Hx of tonsillectomy Family History Father History of high blood pressure History of diabetes mellitus Mother History of high blood pressure History of diabetes mellitus Social History Household Members Other:: daughter Housing: House Alcohol intake: never Patient Tobacco Use Status: Former Tobacco user Current occupational status: employed 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 Sexual orientation: Straight/Heterosexual Gender identity: Female Female Reproductive History Menstrual Date of last pap smear: 03/09/23 (negative pap smear, negative hpv) Date of Mammogram: 02/08/24 (bi-rad 1) Review of Systems Const All systems reviewed & are unremarkable except as noted in HPI and below Card Reports as per HPI Resp Reports as per HPI GI Reports as per HPI and Reports no additional complaints Reports as per HPI Physical Exam Vital Signs: Last Vital Signs BP 132/80 04/20/24 09:05 BMI result Body Mass Index 28.1 Const General: cooperative, healthy appearing and comfortable Chest Chest palpation & inspection: normal inspection of the chest and normal palpation of entire chest wall Breast/axilla inspection: normal inspection of the breasts and normal inspection of the axillae Breast/axilla palpation: normal palpation of the breasts, normal palpation of the axillae and no axillary lymphadenopathy Resp Effort & Inspection: normal respiratory effort Auscultation: clear to auscultation bilaterally Percussion: percussion normal Cardio Palpation: normal PMI Rate: regular rate Rhythm: regular rhythm Heart sounds: no murmurs and no rubs Peripheral pulses: Peripheral pulses 2+ throughout GI Inspection: Yes normal to inspection Palpation (GI): Soft to palpation, nontender, no guarding, not rigid and No hepatosplenomegaly present Percussion: Yes normal to percussion Auscultation: normal bowel sounds Rectal Exam - Female: deferred General: Yes bladder normal to palpation External Female Exam: No lesion Speculum Exam - Vagina: normal appearance of the vagina, normal palpation, normal vaginal discharge and not erythematous Speculum Exam - Cervix: normal appearance of the cervix and normal palpation Bimanual exam- vagina & uterus: normal bimanual exam, normal palpation, uterine size normal, bladder normal to palpation, consistency normal and normal palpation Bimanual Exam- Adnexa, other: normal adnexae, no masses and no tenderness Assessment & Plan Assessment & Plan (1) Well woman exam: Code(s): Z01.419 - Encounter for gynecological examination (general) (routine) without abnormal findings Category: Medical Plan: Co testing not indicated this year. Counseled the patient about the recommended dietary allowance of 1200 mg of Calcium & 600 IU of vitamin D. Instructions given to patient to schedule next screening Mammogram in 03/01. The patient was instructed to perform monthly self-breast exams and schedule annual exam in a year. All questions answered and the patient verbalized understanding. Coding Level of Care Code Est Pt Prev Care 40-64y(72409) Diagnoses Well woman exam Z01.419
[2024-04-20 09:05] VITALS: BP 132/80; BMI 28.1
== END 2024-04-20 09:33 | disposition home or self-care (01) ==
PROVIDERS: PCP Registered Nurse; Visit Provider Obstetrics & Gynecology
DX: Z01.419 Encounter for gynecological examination (general) (routine) without abnormal findings (principal)
CPT/HCPCS: 99396

== ENCOUNTER → 2024-04-20 09:01 | Outpatient (BNVA) | payer OTHER, SELFPAY | PROVIDERS: PCP Registered Nurse; Visit Provider Obstetrics & Gynecology ==

== ENCOUNTER 2024-05-09 12:31 | Outpatient (AMB) | payer OTHER, SELFPAY ==
--- NOTE | 2024-05-09 12:40 | A.OFFVIS_ITS ---
Intake Visit Reasons: OV - B/L knee OA, requesting inj Intake Note: Elzbieta is a 63 year old female who presents today for a follow up of her bilateral knee OA, last inj on the right knee 03/27/22 and on the left knee was on 02/03/24. Patient reports her right knee is doing okay today, however her left knee is causing her a lot of pain. She mentions that her injection for her left knee gave her 4 - 5 months of relief. Allergies No Known Allergies Allergy (Verified 05/09/24 12:50) HPI HPI OV - B/L knee OA, requesting inj: Details: 64-year-old female who presents in the office today for a follow-up of bilateral knee osteoarthritis. I last saw the patient in the office on 02/03/24 when she was given a cortisone injection in the left knee. We also discussed the role of gel injection or possible nerve blocks with Pain Management . She was recommended KT taping as it benefitted her bilateral knees in the past. I also discussed the possibility of total knee arthroplasty in the future; however, it was not an option at that time. She received her last cortisone injection in the right knee on 03/27/22. While in the office today, the patient reports bilateral knee pain. She mentions experiencing severe left knee pain. She does not have right knee pain today. She reports her last cortisone injection in the left knee provided her with 4-5 months of relief. She would like to have a repeat injection today. 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 No ecchymosis, erythema, or joint effusion. No tenderness to palpation along the medial or lateral joint lines. Full knee extension and flexion. Crepitus felt with ROM. NVI.?? Office Procedures AMB Joint Injection/Aspiration Joint Injection/Aspiration Primary Site: left knee Prep: site was prepped using aseptic technique, ethochloride spray was applied and injection warnings given Injected: 80 mg of, DepoMedrol, with 8 mL of (2% plain lido ) and in the joint Approach Used: anterolateral Procedure: The patient tolerated the procedure well, but had some pain with the injection and there was some relief with the local anesthesia Coding 67686 - Large joint Procedure code (CPT) selection complete Assessment & Plan Assessment & Plan (1) Osteoarthritis of left knee: Code(s): M17.12 - Unilateral primary osteoarthritis, left knee Category: Medical (2) Osteoarthritis of right knee: Code(s): M17.11 - Unilateral primary osteoarthritis, right knee Category: Medical Plan Ms. De La Paz is a 64-year-old female who presents in the office today for a follow-up of bilateral knee osteoarthritis. I last saw the patient in the office on 02/03/24 when she was given a cortisone injection in the left knee. We also discussed the role of gel injection or possible nerve blocks with Pain Management . She was recommended KT taping as it benefitted her bilateral knees in the past. I also discussed the possibility of total knee arthroplasty in the future; however, it was not an option at that time. She received her last cortisone injection in the right knee on 03/27/22. While in the office today, the patient reports bilateral knee pain. She mentions severe pain in the left knee; however, she does not have pain in her right knee today. She reports her last cortisone injection in the left knee provided her with 4-5 months of relief. She would like to have a repeat injection today. The patient was offered a cortisone injection in the left knee with 80 mg of Depo-Medrol. The patient was explained the risks, benefits, and alternatives to receiving this injection. After receiving consent for the injection, the patient had the procedure done while in the office today. The patient tolerated the procedure well with no complication. Follow-up will be PRN, or sooner if needed. Patient Instructions: Scribed by Renetta Che chief medical technologist, for Eleonora Weiss PA-C on 05/09/24 at 1:20 pm EST. Coding Level of Care Code Est Pt Level 3 (08965) Diagnoses Osteoarthritis of left knee M17.12 Osteoarthritis of right knee M17.11 CPT Codes Coding - 10912 Large joint: 79946 - Large joint ([id number])
== END 2024-05-09 13:03 | disposition home or self-care (01) ==
PROVIDERS: PCP Family Medicine; Visit Provider Physician Assistant
DX: M17.0 Bilateral primary osteoarthritis of knee (principal)
CPT/HCPCS: 20610; 99213

== ENCOUNTER → 2024-05-09 12:31 | Outpatient (BNVA) | payer OTHER, SELFPAY | PROVIDERS: PCP Family Medicine; Visit Provider Physician Assistant | DX: M17.0 Bilateral primary osteoarthritis of knee (principal) | CPT/HCPCS: 20610; J1010; J2003 ==

== ENCOUNTER 2024-05-27 08:30 | Outpatient (REF) | payer OTHER, SELFPAY ==
--- NOTE | ~2024-05-27 | MR_ITS ---
EXAMINATION: MR KNEE WITHOUT CONTRAST, RIGHT CLINICAL INFORMATION: Right knee pain COMPARISON: Radiographs 02/03/2024 TECHNIQUE: MRI of the knee without contrast was performed using routine sequences on a high-field scanner. FINDINGS: MENISCI: Medial Meniscus: Complex tear of the posterior horn near the meniscal root with oblique inner margin radial component and peripheral undersurface component. There is mild inner margin tearing of the posterior horn more medially, and prominent intrasubstance degenerative signal of the meniscal body which is extruded. Lateral Meniscus: Intact LIGAMENTS: Cruciate: Intact Collateral: Intact EXTENSOR MECHANISM: Intact ARTICULAR CARTILAGE/BONE: Patellofemoral Compartment: Partial-thickness cartilage loss and surface irregularity throughout the central and medial trochlea and central patella. There is a 5 mm focal cartilage defect of the lateral trochlea superiorly. Small marginal osteophytes. Medial Compartment: Cartilage thinning and surface irregularity throughout the weightbearing aspect with prominent marginal osteophytes. Lateral Compartment: Small marginal osteophytes. JOINT FLUID AND BURSAE: Moderate joint effusion with mild diffuse synovitis. There is a 7 mm chondral body in the suprapatellar recess and a 9 mm chondral body posterior to the lateral femoral condyle. Tendinitis or strain of the medial gastrocnemius origin through which a small complex ganglion projects. MR/MR knee RT wo con IMPRESSION: 1. Complex tear of the posterior horn of the medial meniscus with extrusion of the meniscal body. 2. Moderate patellofemoral/medial compartment and mild lateral compartment osteoarthritis. Moderate joint effusion with mild diffuse synovitis. There are chondral bodies in the suprapatellar recess and posterior to the lateral femoral condyle. 3. Tendinitis/strain of the medial gastrocnemius origin. Electronically signed by: Vishal Aparicio MD 05/27/2024 12:46 PM EST
== END 2024-05-27 08:31 | disposition home or self-care (01) ==
LOC: HO.MRI 08:30
PROVIDERS: PCP Family Medicine; Visit Provider Family Medicine
DX: M25.561 Pain in right knee (principal); G89.29 Other chronic pain
CPT/HCPCS: 73721

== ENCOUNTER 2024-11-02 10:29 | Outpatient (REF) | payer OTHER, SELFPAY ==
--- OUTSIDE RECORDS SUMMARY | 2024-11-02 10:55 | XMS_ITS | Encounter Summary ---
Author Organization [employer] Address [address] [facility] [address]t [place] [address] Care Team Providers Care Core Driller Helper Name Role Phone Yumiko Krishna MD Primary Care Provider [phone] Encounter Details Date Type Department Care Team (Late st Contact Info) Description 11/05/2023 Orders Only [facility] MEDICINE [address] [place], [place] [phone] Yumiko Krishna MD [address] [place], [place] [phone] Hypertension, unspecified type Social History Tobacco Use Types Packs/Day Years Used Date Smoking Tobacco: Never Smokeless Tobacco: Never Alcohol Use Standard Drinks/Week Comments Never 0 (1 standard drink = 0.6 oz pur e alcohol) Depression Answer Date Recorded Patient Health Questionnaire-9 Score 0 10/11/2023 Patient Health Questionnaire-9 Score 0 10/11/2023 Last PHQ-9: Questionnaire Data Not on file 0 10/11/2023 Housing Stability Answer Date Recorded What is your housing situation today? I have pramod tucker 10/04/[address] you li ve. Do you have problems with any of the following? None of the above 10/04/2023 Food Insecurity Answer Date Recorded Within the past 12 months, y ou worried that your food would run out before you got money to buy more: Never True 10/04/2023 Within the past 12 months,th e food you bought just didn't last and you didn't have enough money to get more: Never True Transportation Answer Date Recorded In the past 12 months, has l ack of transportation kept you from medical appts, meetings, work or from getting things needed for daily living? No 10/04/2023 Utilities Answer Date Recorded In the past 12 months, has t he electric, gas, oil or water company threatened to shut off services in your home? No 10/04/2023 Depression Answer Date Recorded Patient Health Questionnaire-2 Score 0 10/11/2023 Comments Unknown Sex and Gender Information Value Date Recorded Sex Assigned at Female 04/06/2022 10:36 AM EDT Legal Sex Female 10:36 AM EDT Gender Identity Female 04/06/2022 10:36 AM EDT Sexual Orientation Choose not to disclose 2021 10:36 AM EDT documented as of this encounter Plan of Treatment Not on file documented as of this encounter Visit Diagnoses Diagnosis Hypertension, unspecified type documented in this encounter Additional Health Concerns Assessment Noted Time PHQ-9 Depression Total Score: 0 10/11/19 24 2:22 PM EDT documented as of this encounter Care Teams Core Driller Helper Relationship Specialty Start Date End Date Yumiko Krishna MD [address] [place] [phone] PCP - General Family Medicine 07/30/23 documented as of this encounter
[2024-11-02 12:10] LABS: Estimated Average Glucose 120 mg/dL; Hemoglobin A1c % 5.8 % (<6.0)
[2024-11-02 12:17] LABS: Alanine Aminotransferase 20 U/L (0-31); Albumin Level 4.2 g/dL (3.5-5.0); Alkaline Phosphatase 77 U/L (39-117); Anion Gap 12 (12-20); Aspartate Amino Transferase 26 U/L (5-31); Bilirubin Total 1.2 mg/dL (0.0-1.0); Blood Urea Nitrogen 14 mg/dL (9-16); Calcium 9.8 mg/dL (8.4-10.2); Carbon Dioxide 31 mmol/L (22-29); Chloride 107 mmol/L (96-108); Cholesterol 159 mg/dL (<200); Estimated Glomerular Filt Rate > 60; Glucose Random 90 mg/dL (60-115); HDL Cholesterol 58 mg/dL (>40); LDL Cholesterol Calculated 91 mg/dL (<100); Potassium 3.7 mmol/L (3.3-5.1); Sodium 146 mmol/L (135-145); Total Protein 7.1 g/dL (6.5-8.0); Triglycerides 53 mg/dL (<150)
[2024-11-02 12:32] LABS: TSH reflex Free T4 1.93 uIU/mL (0.32-4.0)
[2024-11-02 13:57] LABS: Reflex LDLD? No
== END 2024-11-02 10:30 | disposition home or self-care (01) ==
LOC: HO.HHCL 10:29
PROVIDERS: Visit Provider Family Medicine
DX: I10 Essential (primary) hypertension (principal); Z13.1 Encounter for screening for diabetes mellitus; L65.9 Nonscarring hair loss, unspecified; E78.5 Hyperlipidemia, unspecified
CPT/HCPCS: 36415; 80053; 80061; 83036; 84443

== ENCOUNTER 2025-02-22 07:26 | Outpatient (REF) | payer OTHER, SELFPAY ==
--- OUTSIDE RECORDS SUMMARY | 2025-02-22 07:32 | XMS_ITS | Encounter Summary ---
Author Organization [employer] Address [address] [place] [address] [address] [place] [address] Care Team Providers Care Offset Machine Operator Name Role Phone Mukesh Vincent CARL Primary Care Provider Unavail able Yumiko Krishna MD Primary Care Provider [phone] Reason for Visit * Reason Onset Date Comments Med Refill 11/24/2022 Encounter Details Date Type Department Care Team (Late st Contact Info) Description 11/24/2022 Refill [facility] MEDICINE [address] [place] [address] [phone] Maia Leyva FNP Hypertension, unspecified type Social History Tobacco Use Types Packs/Day Years Used Date Smoking Tobacco: Never Smokeless Tobacco: Never Alcohol Use Standard Drinks/Week Comments Never 0 (1 standard drink = 0.6 oz pur e alcohol) Depression Answer Date Recorded Patient Health Questionnaire-9 Score 0 06/26/2022 Depression Answer Date Recorded Patient Health Questionnaire-2 Score 0 06/26/2022 Comments Unknown Sex and Gender Information Value Date Recorded Sex Assigned at Female 04/06/2022 10:36 AM EDT Legal Sex Female 10:36 AM EDT Gender Identity Female 04/06/2022 10:36 AM EDT Sexual Orientation Choose not to disclose 2021 10:36 AM EDT documented as of this encounter Plan of Treatment Upcoming Encounters Date Type Department Care Team (Late st Contact Info) Description 03/21/2025 9:45 AM EDT Office Visit [facility] MEDICINE [address] [place] [address] [phone] Yumiko Krishna MD [address] [place], [place] [phone] documented as of this encounter Visit Diagnoses Diagnosis Hypertension, unspecified type documented in this encounter Additional Health Concerns Assessment Noted Time PHQ-9 Depression Total Score: 0 06/26/19 1:17 PM EST documented as of this encounter Care Teams Offset Machine Operator Relationship Specialty Start Date End Date Mukesh Vincent AGNP PCP - General Family Medicine 06/12/22 02/18/23 Yumiko Krishna MD [address] [place] [phone] PCP - General Family Medicine 07/30/23 documented as of this encounter
--- OUTSIDE RECORDS SUMMARY | 2025-02-22 07:32 | XMS_ITS | Encounter Summary ---
Author Organization [employer] Address [address] [facility] [address]t [place] [address] Care Team Providers Care Rn Perioperative Name Role Phone Yumiko Krishna MD Primary Care Provider [phone] Reason for Visit * Reason Comments Med Refill Encounter Details Date Type Department Care Team (Late st Contact Info) Description 08/10/2023 Refill [facility] MEDICINE [address] [place], [place] [phone] Nadya Atkinson FNP [address] [place] [address] Hypertension, unspecified type Social History Tobacco Use Types Packs/Day Years Used Date Smoking Tobacco: Never Smokeless Tobacco: Never Alcohol Use Standard Drinks/Week Comments Never 0 (1 standard drink = 0.6 oz pur e alcohol) Depression Answer Date Recorded Patient Health Questionnaire-9 Score 0 06/26/2022 Housing Stability Answer Date Recorded What is your housing situation today? I have pramod tucker 03/24/[address] you li ve. Do you have problems with any of the following? I am not sure;None of the above 03/24/2023 Food Insecurity Answer Date Recorded Within the past 12 months, y ou worried that your food would run out before you got money to buy more: Never True 03/24/2023 Within the past 12 months,th e food you bought just didn't last and you didn't have enough money to get more: Never True Transportation Answer Date Recorded In the past 12 months, has l ack of transportation kept you from medical appts, meetings, work or from getting things needed for daily living? No 03/24/2023 Utilities Answer Date Recorded In the past 12 months, has t he electric, gas, oil or water company threatened to shut off services in your home? No 03/24/2023 Depression Answer Date Recorded Patient Health Questionnaire-2 [...] Description 03/21/2025 9:45 AM EDT Office Visit [facility] MEDICINE [address] [place] [phone] Yumiko Krishna MD [address] [place] [phone] documented as of this encounter Visit Diagnoses Diagnosis Hypertension, unspecified type documented in this encounter Additional Health Concerns Assessment Noted Time PHQ-9 Depression Total Score: 0 06/26/19 23 1:17 PM EST documented as of this encounter Care Teams Rn Perioperative Relationship Specialty Start Date End Date Yumiko Krishna MD [address] [place] [phone] PCP - General Family Medicine 07/30/23 documented as of this encounter
--- OUTSIDE RECORDS SUMMARY | 2025-02-22 07:32 | XMS_ITS | Encounter Summary ---
Author Organization [employer] Address [address] [facility] 7t [place] [address] Care Team Providers Care Home Paraprofessional Name Role Phone Yumiko Krishna MD Primary Care Provider [phone] Reason for Visit * Reason Comments Med Refill Encounter Details Date Type Department Care Team (Late st Contact Info) Description 02/28/2024 Refill [facility] MEDICINE [address] [place], [place] [phone] Nadya Atkinson FNP [address] [place] [address] Hypertension, unspecified type Social History Tobacco Use [...] Description 03/21/2025 9:45 AM EDT Office Visit [facility] MEDICINE [address] [place] [address] Yumiko Krishna MD [address] [place] [phone] documented as of this encounter Visit Diagnoses Diagnosis Hypertension, unspecified type documented in this encounter Additional Health Concerns Assessment Noted Time PHQ-9 Depression Total Score: 0 10/11/19 24 2:22 PM EDT documented as of this encounter Care Teams Home Paraprofessional Relationship Specialty Start Date End Date Yumiko Krishna MD [address] [place] [address] PCP - General Family Medicine 07/30/23 documented as of this encounter
--- OUTSIDE RECORDS SUMMARY | 2025-02-22 07:32 | XMS_ITS | Encounter Summary ---
Author Organization [employer] Address [address] [facility] [address] [place] [address] Care Team Providers Care Project Safety Manager Name Role Phone Yumiko Krishna MD Primary Care Provider [phone] Encounter Details Date Type Department Care Team (Late st Contact Info) Description 01/10/2024 Orders Only [facility] MEDICINE [address] [place], [place] [phone] Yumiko Krishna MD [address] [place], [place] [phone] Social History Tobacco Use Types Packs/Day Years [...] 9:45 AM EDT Office Visit [facility] MEDICINE [address] [place] [phone] Yumiko Krishna MD [address] [place] [address] documented as of this encounter Visit Diagnoses Not on filedocumented in this encounter Additional Health Concerns Assessment Noted Time PHQ-9 Depression Total Score: 0 10/11/19 24 2:22 PM EDT documented as of this encounter Care Teams Project Safety Manager Relationship Specialty Start Date End Date Yumiko Krishna MD [address] [place] [address] PCP - General Family Medicine 07/30/23 documented as of this encounter
--- OUTSIDE RECORDS SUMMARY | 2025-02-22 07:32 | XMS_ITS | Encounter Summary ---
Author Organization [employer] Address [address] [facility] [address] [place] [address] Care Team Providers Care Front Office Developer Name Role Phone Yumiko Krishna MD Primary Care Provider [phone] Reason for Referral * Consultation (Urgent) - Closed Specialty Diagnoses / Procedures Referred By Sharlene cordero Referred To Contact Orthopaedic Surgery Diagnoses Chronic pain of left knee Yumiko Krishna MD [address] [place] [address] Phone: tel: fax: [facility] [address] [place] [address] Phone: tel: Referral ID Status Reason Start Date Expiration Date V isits Requested Visits Authorized [id number] Closed Specialty Services Required 01/10/2024 01/09/2025 1 1 Encounter Details Date Type Department Care Team (Late st Contact Info) Description 01/10/2024 Orders Only [facility] [address] [place], [place] [phone] Yumiko Krishna MD [address] [place], [place] [phone] Chronic pain of left knee (Primary Dx) Social History Tobacco Use Types Packs/Day Years [...] Description 03/21/2025 9:45 AM EDT Office Visit [facility] [address] [place] [address] Yumiko Krishna MD [address] [place] [address] Scheduled Referrals Name Type Priority Associated Diagnoses Order Schedule Referral to Orthopaedic Surgery Outpatient Referral Urgent Chronic pain of left knee Expected: 01/10/2024 (Approximate), Expires: 01/09/2025 documented as of this encounter Visit Diagnoses Diagnosis Chronic pain of left knee- Primary documented in this encounter Additional Health Concerns Assessment Noted Time PHQ-9 Depression Total Score: 0 10/11/19 24 2:22 PM EDT documented as of this encounter Care Teams Front Office Developer Relationship Specialty Start Date End Date Yumiko Krishna MD [address] [place] [address] PCP - General Family Medicine 07/30/23 documented as of this encounter
--- OUTSIDE RECORDS SUMMARY | 2025-02-22 07:32 | XMS_ITS | Encounter Summary ---
Author Organization [employer] Address [address] [facility] [address] [place] [address] Care Team Providers Care Draw Frame Runner Name Role Phone Yumiko Krishna MD Primary Care Provider [phone] Encounter Details Date Type Department Care Team (Late st Contact Info) Description 10/27/[address] [facility] [address] [place], [place] [phone] Yumiko Krishna MD [address] [place], [place] [phone] Hypertension, unspecified type (Primary Dx); Dyslipidemia; Hair loss; Screening for diabetes mellitus Social History Tobacco Use Types Packs/Day Years Used Date Smoking Tobacco: Never Smokeless Tobacco: Never Alcohol Use Standard Drinks/Week Comments Never 0 (1 standard drink = 0.6 oz pur e alcohol) Depression Answer Date Recorded Patient Health Questionnaire-9 Score 0 05/22/2024 Patient Health Questionnaire-9 Score 0 05/22/2024 Last PHQ-9: Questionnaire Data Not on file 1 07/23/2023 Housing Stability Answer Date Recorded What is [...] Date Recorded Patient Health Questionnaire-2 Score 0 05/22/2024 Comments Unknown Sex and Gender Information Value [...] Description 03/21/2025 9:45 AM EDT Office Visit [facility] [address] [place], [place] [phone] Yumiko Krishna MD [address] [place], [place] [phone] Scheduled Orders Name Type Priority Associated Diagnoses Orde r Schedule Albumin, Random Urine W/Creatinine Lab Routine Hypertension, unspecified type Expected: 10/27/2024 (Approximate), Expires: 10/27/2025 documented as of this encounter Procedures Procedure Name Priority Date/Time Associated Diagnosis Comments TSH W/REFLEX TO FT4 Routine 11/02/2024 1 0:31 AM EDT Hair loss LIPID PANEL WITH REFLEX TO DIRECT LDL Routine 11/02/2024 10:31 AM EDT Dyslipidemia HEMOGLOBIN A1C Routine 11/02/2024 10:31 AM EDT Screening for diabetes mellitus COMPREHENSIVE METABOLIC PANEL Routine 11/02/2024 10:31 AM EDT Hypertension, unspecified type documented in this encounter Results * Lipid Panel with Reflex to Direct LDL (11/02/2024 10:31 AM EDT) Triglycerides 53 <150 mg/dL [facility] Comment:Desirable Triglyceri de: less than 150 mg/dLBorderline High Triglyceride 150-199 mg/dLHigh Triglyceride: 200-499 mg/dLVery High Triglyceride: greater than or equal to 5OO mg/dL Cholesterol 159 <200 mg/dL [facility] Comment:Desirable Cholestero l: less than 200 mg/dLBorderline High Cholesterol: 200-239 mg/dLHigh Cholesterol: greater than 239 mg/dL LDL Cholesterol Calculated 91 <100 mg/dL [facility] Comment:Desirable LDL: less than 100 mg/dLNear Optimal/Above Optimal LDL: 110- 129 mg/dLBorderline High LDL: 130-159 mg/dLHigh LDL: 160-189 mg/dLVery High LDL: greater than or equal to 190 mg/dL HDL Cholesterol 58 >40 mg/dL [facility] Comment:Desirable HDL: great er than 40 mg/dL Note: This HDL assay may give artificially low results in patients with liver disease. Blood 11/02/2024 10:3 1 AM EDT 11/02/2024 11:44 AM EDT us Yumiko Krishna MD LAB BLOOD ORDERABLES Final Resul t [facility] [address] [place] [address] [phone] * (ABNORMAL) Comprehensive Metabolic Panel (11/02/2024 10:31 AM EDT) Sodium 146(H) 135 - 145 mmol/L [facility] Potassium 3.7 3.3 - 5.1 mmol/L [facility] Chloride 107 96 - 108 mmol/L [facility] Carbon Dioxide 31(H) 22 - 29 mmol/L [facility] Anion Gap 12 12 - 20 [facility] Urea Nitrogen (BUN) 14 9 - 16 mg/dL [facility] Creatinine, Serum 0.69 0.5 - 1.4 mg/dL [facility] Estimated Glomerular Filt Rate >60 [facility] Comment:Chronic Kidney Disea se: Estimated GFR < 60 mL/min/[id number] Kidney Disease: Estimated GFR < 15 mL/min/1.73m2 Glucose 90 60 - 115 mg/dL [facility] Calcium 9.8 8.4 - 10.2 mg/dL [facility] Bilirubin, Total 1.2(H) 0.0 - 1.0 mg/dL [facility] Aspartate Amino Transferase 26 5 - 31 U/L [facility] Alanine Aminotransferase 20 0 - 31 U/L [facility] Total Protein 7.1 6.5 - 8.0 g/dL [facility] Albumin Level 4.2 3.5 - 5.0 g/dL [facility] Alkaline Phosphatase 77 39 - 117 U/L [facility] Blood Venous blood specimen / Unknown 11/02/2024 10:31 AM EDT 11/02/2024 11:44 AM EDT Yumiko Krishna MD LAB BLOOD ORDERABLES Final Resul t [facility] [address] [place] [phone] * Hemoglobin A1c (11/02/2024 10:31 AM EDT) Hemoglobin A1c 5.8 <6.0 % [facility] Comment:Hemoglobin A1C Refer ence Range Adults: 4.8 - 6.0 % Non diabetic: < 6.0 % Goal: < 7.0 %Additional Action Suggested: > 8.0 %Note: Hemoglobin A1c results are invalid for patients with abnormal amounts of HbF. Blood transfusions may impact the HbA1c concentration in the patient sample. Estimated Average Glucose 120 mg/dL [facility] Comment:eAG = Estimated ave rage glucose which is %A1C expressed asaverage glucose, using the formula of the U1P-TbflaxoJktvmyy Glucose study (ADAG), Diabetes Care, Vol.31,#8,2007 Blood Venous blood specimen / Unknown 11/02/2024 10:31 AM EDT 11/02/2024 11:46 AM EDT Yumiko Krishna MD LAB BLOOD ORDERABLES Final Resul t Performing Organization Address City/[facility] Co de Phone Number [facility] [address] [place] [address] [phone] * TSH with Reflex to Free T4 (11/02/2024 10:31 AM EDT) TSH reflex Free T4 1.93 0.32 - 4.0 uIU/mL [facility] Blood 11/02/2024 10:3 1 AM EDT 11/02/2024 11:44 AM EDT us Yumiko Krishna MD LAB BLOOD ORDERABLES Final Resul t Performing Organization Address [facility] Co de Phone Number [facility] [address] [place] [phone] documented in this encounter Visit Diagnoses Diagnosis Hypertension, unspecified type- Primary Dyslipidemia Other and unspecified hyperlipidemia Hair loss Unspecified alopecia Screening for diabetes mellitus documented in this encounter Additional Health Concerns Assessment Noted Time PHQ-9 Depression Total Score: 0 05/22/20 24 1:03 PM EST documented as of this encounter Care Teams Draw Frame Runner Relationship Specialty Start Date End Date Yumiko Krishna MD [address] [place] [phone] PCP - General Family Medicine 07/30/23 documented as of this encounter
--- OUTSIDE RECORDS SUMMARY | 2025-02-22 07:32 | XMS_ITS | Encounter Summary ---
Author Organization [employer] Address [address] [facility] [address] [place] [address] Care Team Providers Care Director Part Name Role Phone Yumiko Krishna MD Primary Care Provider [phone] Encounter Details Date Type Department Care Team (Late st Contact Info) Description 04/16/2023 Abstract [facility] [address] [place] [address] Tamika Jefferson Social History Tobacco Use Types Packs/Day Years [...] Description 03/21/2025 9:45 AM EDT Office Visit [facility] [address] [place] [address] Yumiko Krishna MD [address] [place], [place] [phone] documented as of this encounter Procedures Procedure Name Priority Date/Time Associated Diagnosis Comments COLONOSCOPY Routine 03/08/2020 documented in this encounter Results * Hm Colonoscopy (03/08/2020) Colonoscopy Normal Normal Narrative Tamika Jefferson - 03/08/2020 Recommended 5 year follow up us Historical Provider HEALTH MAINTENANCE Final Result documented in this encounter Visit Diagnoses Not on filedocumented in this encounter Additional Health Concerns Assessment Noted Time PHQ-9 Depression Total Score: 0 06/26/19 23 1:17 PM EST documented as of this encounter Care Teams Director Part Relationship Specialty Start Date End Date Yumiko Krishna MD [address] [place], [place] [phone] PCP - General Family Medicine 07/30/23 documented as of this encounter
--- OUTSIDE RECORDS SUMMARY | 2025-02-22 07:32 | XMS_ITS | Clinical Summary ---
Author Organization [employer] Address [address] [facility] [address] [place] [address] Care Team Providers Care Coin Box Collector Name Role Phone Yumiko Krishna MD Primary Care Provider [phone] Allergies No known active allergies Medications Diclofenac Sodium 1 % gel Apply 2 g topically 4 times daily. 150 g 3 2023 Active lidocaine (Lidoderm) 5 % patchIndications:Chron ic pain of right knee apply 1 patch by transdermal route every day (May wear up to 12hours.) Strength: 5 % 30 patch 3 2023 Active ibuprofen 600 MG tabletIndications:Transitional Care Nurse tamanna pain of right knee TAKE 1 TABLET BY MOUTH EVERY 8 HOURS NEEDED FOR MILD PAIN 90 tablet 2023 Active hydroCHLOROthiazide (HYDRODiuril) 25 MG tablet TAKE 1 TABLET BY MOUTH IN THE MORNING 90 tablet 1 2023 Active telmisartan-hydroCHLOR Othiazide (Micardis HCT) 80-25 MG tablet Take 1 tablet by mouth Once per day. 90 tablet 3 05/22 Active acetaminophen (Tylenol Extra Strength) 500 MG tablet Take 1 or 2 tablets by mouth every 8 hours as needed for pain 100 tablet 1 2023 Active NIFEdipine XL (Procardia XL) 30 MG 24 hr tabletIndications:Hype rtension, unspecified type TAKE 1 TABLET BY MOUTH IN THE MORNING. TAKE 2 TABLETS IF SYSTOLIC BLOOD PRESSURE IS GREATER THAN 150MMHG 180 tablet 2024 Active atorvastatin (Lipitor) 10 MG tabletIndications:Pure hypercholesterolemia TAKE 1 TABLET BY MOUTH IN THE MORNING 90 tablet 1 2024 Active NIFEdipine XL (Procardia XL) 30 MG 24 hr tabletIndications:Hype rtension, unspecified type TAKE 1 TABLET BY MOUTH IN THE MORNING. Take 2 tablets if systolic blood pressure is > 150 mmHg. 180 tablet 3 02/09 Discontinued atorvastatin (Lipitor) 10 MG tabletIndications:Pure hypercholesterolemia TAKE 1 TABLET BY MOUTH IN THE MORNING 90 tablet 02/13 Discontinued Active Problems Problem Noted Date Diagnosed Date Tubular adenoma of colon 05/21/2024 Assessment & Plan (05/21/2024 5:37 PM EST): - last colonoscopy on 03/08/[address] White, [facility] - cecal polyp and transverse colon polyp were removed. Cecal polyp was tubular adenoma. Chronic pain of left knee 01/28/2024 Assessment & Plan (05/22/2024 11:10 AM EST): - MRI on 12/30/23 reeports Whitt's cyst and tear of medial meniscus - continue judicious use of oxycodone, APAP - follows with Ortho, received steroid injections 02/03/24 and 05/09/24. - discussed to continue taking adequate rest, time off from work, and getting support from her family and friends Assessment & Plan (01/28/2024 11:31 AM EDT): - MRI on 12/30/23 reeports Whitt's cyst and tear of medial meniscus - continue judicious use of oxycodone, APAP - follow up with orthopedist as scheduled - discussed about taking adequate rest, time off from work, and getting support from her family and friends Upper back pain on right side 10/11/2023 Assessment & Plan (10/17/2023 3:08 PM EDT): - encouraged to try PT - continue APAP, topical diclofenac, and lidoderm - if no improvement, consider pain management and/or MRI Epigastric pain 10/11/2023 Assessment & Plan (05/22/2024 5:33 PM EST): - we did not address today, but patient mentioned that NSAID worsens her symptoms - consider checking H. Pylori - consider PPI - minimize NSAID use Assessment & Plan (10/11/2023 3:03 PM EDT): - resolving - avoid NSAIDs - consider checking H. Pylori if recurrent Family history of diabetes mellitus 10/11/2023 Assessment & Plan (10/17/2023 3:08 PM EDT): - continue working on lifestyle modifications Diverticulosis 10/16/2022 Assessment & Plan (10/16/2022 1:31 PM EDT): 03/08/20 colonoscopy removed two polyps and noticed transverse left colon moderate to severe diverticulosis Next colonoscopy 03/2025. Patient is asymptomatic. Her diet is generally composed of meats and vegetables (high fiber). Low carbohydrate and sugar. We discussed the significance of a high fiber diet, diverticulosis and why she, more than likely, has not had diverticulitis that she can recall. Dyslipidemia 09/14/2022 Assessment & Plan (05/22/2024 11:10 AM EST): - continue working on lifestyle modifications - continue atorvastatin - 10 year ASCVD risk is > 5%, but < 7.5%. Consider coronary calcium score, intensifying statin, and/or aspirin. Assessment & Plan (01/28/2024 11:32 AM EDT): - continue working on lifestyle modifications - continue atorvastatin - 10 year ASCVD risk is > 5%, but < 7.5%. Consider coronary calcium score, intensifying statin, and/or aspirin. Assessment & Plan (10/17/2023 3:10 PM EDT): - continue working on lifestyle modifications - continue atorvastatin Assessment & Plan (10/14/2022 1:47 PM EDT): Hepatic panel ordered due to recent introduction of a statin to patients medication regimen Do not eat grapefruit or drink grapefruit juice while taking a statin. Assessment & Plan (09/16/2022 9:08 AM EDT): ASCVD Risk Profile = 6.5% (May consider moderate intensity statin for patients with LDL 70-189 mg/dL (1.7 to 4.8 mmol/L) and presence of risk-enhancing factors. - (IIb, B-R)) [id number] Do not eat grapefruit or drink grapefruit juice while taking a statin. 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 She says the diclofenac gel helps some but she thinks the pain may be getting worse. Unfortunately we were running out of time and I instructed her to make an appointment for knee pain PRN. Hypertension 06/01/2019 Assessment & Plan (05/22/2024 5:31 PM EST): -Goal BP < 130/80 per ACC/AHA guideline (Treatment threshold >=140/90) -Elevated BP today; home blood pressure measurements are reportedly normal. Patient attributes it to pain. -Continue working on lifestyle modifications -Recommended self-monitoring BP. -Continue losartan 100 mg daily -Continue hydrochlorothiazide 25 mg daily -Continue nifedipine 30 mg daily, take 60 mg if SBP > 150. -Treatment Hx: amlodipine was changed to nifedipine when patient developed leg sweeling -Follow up in 3-6 mo, sooner if any problem arises -Will consider decrease pill-burden by combining losartan and hydrochlorothiazide. -Will also consider changing Losartan to longer-acting ARB. -Prescribing telmisartan - hctz (can change to olmesartan or valsartan combo) Assessment & Plan (01/28/2024 11:34 AM EDT): -Goal BP < 140/90 per JNC-8 and < 130/80 per ACC/AHA guideline (Treatment threshold >=140/90) -Elevated BP today; home blood pressure measurements are reportedly normal. Patient attributes it to pain. -Continue working on lifestyle modifications -Recommended self-monitoring BP. -Continue losartan 100 mg daily -Continue hydrochlorothiazide 25 mg daily -Continue nifedipine 30 mg daily, take 60 mg if SBP > 150. -Treatment Hx: amlodipine was changed to nifedipine when patient developed leg sweeling -Follow up in 3-6 mo, sooner if any problem arises -Consider decreasing pill-burden by combining losartan and hydrochlorothiazide. Assessment & Plan (10/17/2023 2:59 PM EDT): -Goal BP < 140/90 per JNC-8 and < 130/80 per ACC/AHA guideline (Treatment threshold >=140/90) -Elevated BP today; home blood pressure measurements are reportedly normal -Continue working on lifestyle modifications -Recommended self-monitoring BP. -Continue losartan 100 mg daily -Continue hydrochlorothiazide 25 mg daily -Continue nifedipine 30 mg daily -Treatment Hx: amlodipine was changed to nifedipine when patient developed leg sweeling -Follow up in 3-6 mo, sooner if any problem arises -Consider decreasing pill-burden by combining losartan and hydrochlorothiazide. Assessment & Plan (10/16/2022 1:24 PM EDT): BP well managed. I do not recommend any medication changes at this time. Patient to continue current therapies. ED precautions advised. Assessment & Plan (09/16/2022 10:48 AM EDT): BP slightly elevated today. Patient also concerned about her BP. I gave her a log and she will monitory her BP twice a day and report back in one month. Resolved Problems Problem Noted Date Diagnosed Date Resolved Date Routine adult health maintenance 09/14/2022 10/17/2023 Assessment & Plan (10/16/2022 1:22 PM EDT): 03/08/20 colonoscopy removed two polyps and noticed transverse left colon moderate to severe diverticulosis Next colonoscopy 03/2025. She has an upcoming appointment with [facility] for a pap. Encounters Date Type Department Care Team Description 02/14/2025 Telephone [facility] [address] [facility] [place] [address] Yumiko Krishna MD Appointment 02/12/2025 Refill [facility] [address] [facility] [place] [address] Yumiko Krishna MD Pure hypercholesterolemia 02/09/2025 Refill [facility] [address] [facility] [place] [address] Yumiko Krishna MD Hypertension, unspecified type from Last 3 Months Immunizations Immunization Administration Dates Next Due INFLUENZA VACCINE QUADRIVALE NT RECOMBINANT PRESERVATIVE FREE RIV4 03/20/2023 Influenza injectable quadriv alent preservative free 03/20/2022,04/25/2021,02/08/2020,2018 RSV Adjuvant 06/20/2023 Tdap 06/01/2019 Zoster, Recombinant 08/02/2019,06/01/2019 Social History Tobacco Use Types Packs/Day Years [...] not to disclose 2021 10:36 AM EDT Last Filed Vital Signs Vital Sign Reading Time Taken Comments Blood Pressure 138/88 05/22/2024 11:13 AM EST Pulse 89 05/22/2024 11:00 AM EST Temperature 36.1 C (96.9 F) 05/22/2024 11:00 AM EST Respiratory Rate 15 05/22/2024 11:00 AM EST Oxygen Saturation 99% 05/22/2024 11:00 AM EST Inhaled Oxygen Concentration - - Weight 90.9 kg (200 lb 6.4 oz) 05/22/2024 11:00 AM EST Height 175.3 cm (5' 9 ) 01/24/2024 10:37 AM EDT Body Mass Index 29.59 01/24/2024 10:37 AM EDT Plan of Treatment Upcoming Encounters Date Type Department Care Team (Late st Contact Info) Description 03/21/2025 9:45 AM EDT Office Visit [facility] [address] [place] [phone] Yumiko Krishna MD [address] [place] [address] Health Maintenance Due Date Last Done Comments CT Colonography 1960 Dental Oral Exam 1960 Dental Prophylaxis 1960 Dental X-Ray: Bitewings 1960 Dental X-Ray: Full Mouth 1960 FIT DNA/Cologuard 1960 FIT 1960 FOBT 1960 HIV Screening 1960 Sigmoidoscopy 1960 Disability Screening 1960 Pneumococcal Vaccine: 50+ Years (1 of 1 - PCV) 2011 SDOH Screening 10/03/2024 10/04/2023 COVID-19 Vaccine (5 - season) 2025 03/26/2022, 06/11/2021, 10/02/2020, Additional history exists Influenza Vaccine (#1) 2025 3, 03/20/2022, 04/25/2021, Additional history exists Colonoscopy 03/08/2025 03/08/2020 Colorectal Cancer Screening 03/08/2025 Alcohol/Substance Use Screening 05/22/2025 05/22/2024 Depression Screening 05/22/2025 05/22/2024, 05/22/20 24 Tobacco Screening 05/22/2025 05/22/2024 Diabetes: Hemoglobin A1C 11/02/2025 025, 10/12/2023, 08/27/2021, Additional history exists Mammogram 2026 02/08/2024, 08/0 01/2023, 11/14/2021, Additional history exists Pap Smear 03/09/2026 03/09/2023 Cervical Cancer Screening 03/09/2028 HPV/Cotest 03/09/2028 03/09/2023, 08/03/2019 DTaP/Tdap/Td Vaccines (2 - Td or Tdap) 06/01/2029 06/01/2019 Lipid Panel 11/02/2029 11/02/2024, 05/0 12/2023, 10/16/2022, Additional history exists Zoster Vaccines Completed 08/02/2019, 06/01/2019 Hepatitis C Screening Completed 07/03/2022 RSV Patients and Patients Aged 60 years or older Completed 06/20/2023 HIB Vaccines Aged Out No longer eligi ble based on patient's age to complete this topic HPV Vaccines Aged Out No longer eligi ble based on patient's age to complete this topic Hepatitis A Vaccines Aged Out No long er eligible based on patient's age to complete this topic Hepatitis B Vaccines Aged Out No long er eligible based on patient's age to complete this topic IPV Vaccines Aged Out No longer eligi ble based on patient's age to complete this topic Meningococcal B Vaccine Aged Out No l onger eligible based on patient's age to complete this topic Meningococcal Vaccine Aged Out No haider ephraim eligible based on patient's age to complete this topic RSV under 20 months Aged Out No longe r eligible based on patient's age to complete this topic Rotavirus Vaccines Aged Out No longer eligible based on patient's age to complete this topic Procedures Procedure Name Priority Date/Time Associated Diagnosis Comments HEMOGLOBIN A1C Routine 11/02/2024 10:31 AM EDT Screening for diabetes mellitus LIPID PANEL WITH REFLEX TO DIRECT LDL Routine 11/02/2024 10:31 AM EDT Dyslipidemia BI MAMMOGRAM SCREENING TOMOSYNTHESIS BILATERAL Routine 02/08/2024 8:45 AM EDT HPV MRNA E6/E7 REFLEX TO HPV 16, 18/45 Routine 03/09/2023 12:49 PM EDT PAP SMEAR Routine 03/09/2023 12:49 PM EDT HEPATITIS C AB W/REFL TO HCV RNA, QN, PCR Routine 07/03/2022 9:43 AM EST Routine health maintenance HM COLONOSCOPY Routine 03/08/2020 from Last 3 Months or Most Recently Relevant to Health Maintenance Results * Lipid Panel with Reflex to Direct LDL (11/02/2024 10:31 AM EDT) Triglycerides 53 <150 mg/dL [facility] Comment:Desirable Triglyceri de: less than 150 mg/dLBorderline High Triglyceride 150-199 mg/dLHigh Triglyceride: 200-499 mg/dLVery High Triglyceride: greater than or equal to 5OO mg/dL Cholesterol 159 <200 mg/dL [facility] Comment:Desirable Cholestero l: less than 200 mg/dLBorderline High Cholesterol: 200-239 mg/dLHigh Cholesterol: greater than 239 mg/dL LDL Cholesterol Calculated 91 <100 mg/dL [facility] Comment:Desirable LDL: less than 100 mg/dLNear Optimal/Above Optimal LDL: 110- 129 mg/dLBorderline High LDL: 130-159 mg/dLHigh LDL: 160-189 mg/dLVery High LDL: greater than or equal to 190 mg/dL HDL Cholesterol 58 >40 mg/dL [facility] Comment:Desirable HDL: great er than 40 mg/dL Note: This HDL assay may give artificially low results in patients with liver disease. Blood 11/02/2024 10:3 1 AM EDT 11/02/2024 11:44 AM EDT Yumiko Krishna MD LAB BLOOD ORDERABLES Final Resul t Performing Organization Address [facility] Co de Phone Number [facility] [address] [place] [phone] * Hemoglobin A1c (11/02/2024 10:31 AM EDT) Hemoglobin A1c 5.8 <6.0 % [facility] Comment:Hemoglobin A1C Refer ence Range Adults: 4.8 - 6.0 % Non diabetic: < 6.0 % Goal: < 7.0 %Additional Action Suggested: > 8.0 %Note: Hemoglobin A1c results are invalid for patients with abnormal amounts of HbF. Blood transfusions may impact the HbA1c concentration in the patient sample. Estimated Average Glucose 120 mg/dL [facility] Comment:eAG = Estimated ave rage glucose which is %A1C expressed asaverage glucose, using the formula of the Z0Y-MsrshtcKldopwz Glucose study (ADAG), Diabetes Care, Vol.31,#8,Jan. 2007 Blood Venous blood specimen / Unknown 11/02/2024 10:31 AM EDT 11/02/2024 11:46 AM EDT Yumiko Krishna MD LAB BLOOD ORDERABLES Final Resul t Performing Organization Address [facility] Co de Phone Number [facility] [address] [place] [phone] * BI Mammogram Screening Tomosynthesis Bilateral (02/08/2024 8:45 AM EDT) Anatomical Region Laterality Modality Breast Bilateral Mammography 02/08/2024 8:45 AM EDT Narrative 02/26/2024 10:41 PM EDT [address] [place] [address] Mammography Report Signed Patient: Elzbieta De La Paz MR#: [id number] 61 : 1960 Acct:[id number] Age/Sex: 64 / F ADM Date: 02/08/24 Loc: HO.MAMMO Attending Dr: Yumiko Krishna MD Ordering Physician: Yumiko Krishna MD Results: 1Negative Date of Service: 02/08/24 Follow Up: 1 Year From Orig inal Mammogram Procedure(s): MM tomosynthesis screening BI Accession Number(s): [id number] cc: Yumiko Krishna MD EXAMINATION: MM SCREENING DIGITAL BREAST TOMOSYNTHESIS, BILATERAL CLINICAL INFORMATION: Screening. Asymptomatic. COMPARISON: Mammography: Comparison is made with available priors TECHNIQUE: Digital breast mammography with tomosynthesis is performed in both the craniocaudal and mediolateral oblique views along with computer-aided detection (CAD). FINDINGS: The breasts are heterogeneously dense, which may obscure small masses (ACR BI-RADS breast composition Category c). There are no significant masses, abnormal calcifications, or other abnormalities. MM/MM tomosynthesis screening BI IMPRESSION: No mammographic evidence of malignancy. ASSESSMENT: BI-RADS BI-RADS 1 - Negative RECOMMENDATION: Routine annual mammography screening. 1 year F/U This examination should not preclude the clinical evaluation of a suspicious palpable abnormality. This patient's information was entered into a reminder system with a target due date for their next mammogram. Electronically signed by: Allyn Milner DO 02/26/2024 10:38 PM EDT Dictated By: Allyn Milner DO Signed By: <Electronically signed by Allyn Milner DO in OV> 02/26/248 DD/ 0845 TD/TT: 02/08/24 09 Jackspooler: Procedure Note Donotuseinterpreter, Image - 02/26/[address] [place] [address] Mammography Report Signed Patient: Consuelo De La Paz#: [id number] [birth year] : 1Acct:[id number] Age/Sex: 64 / FADM Date: 02/08/24 Loc: HO.MAMMO Attending Dr: Yumiko Krishna MD Ordering Physician: Yumiko Krishna MDResults: 1Negative Date of Service: 02/08/24Follow Up: 1 Year From Orig ina Mammogram Procedure(s): MM tomosynthesis screening BI Accession Number(s): [id number] cc: Yumiko Krishna MD EXAMINATION: MM SCREENING DIGITAL BREAST TOMOSYNTHESIS, BILATERAL CLINICAL INFORMATION: Screening. Asymptomatic. COMPARISON: Mammography: Comparison is made with available priors TECHNIQUE: Digital breast mammography with tomosynthesis is performed in both the craniocaudal and mediolateral oblique views along with computer-aided detection (CAD). FINDINGS: The breasts are heterogeneously dense, which may obscure small masses (ACR BI-RADS breast composition Category c). There are no significant masses, abnormal calcifications, or other abnormalities. MM/MM tomosynthesis screening BI IMPRESSION: No mammographic evidence of malignancy. ASSESSMENT: BI-RADS BI-RADS 1 - Negative RECOMMENDATION: Routine annual mammography screening. 1 year F/U This examination should not preclude the clinical evaluation of a suspicious palpable abnormality. This patient's information was entered into a reminder system with a target due date for their next mammogram. Electronically signed by: Allyn Milner DO 02/26/2024 10:38 PM EDT Dictated By: Allyn Milner DO Signed By: <Electronically signed by Allyn Milner DO in OV> 02/26/24 2238 DD/ 0845 TD/TT: 02/08/24 0900 Jackspooler: Yumiko Krishna MD [facility] BI PROCEDURES Edited Result - Final * HPV mRNA E6/E7 w/Reflex to HPV Genotypes 16, 18/45 (03/09/2023 12:49 PM EDT) HPV nRNA E6/E7 Not Detected Not Detected [facility] Comment:Methodology: Transcr iption-Mediated AmplificationThis assay detects E6/E7 viral messenger RNA (mRNA) from 14high-risk HPV types (16,18,31,33,35,39,45,51,52,56,58,59,66,68).Cervical sources are required for HPV testing.If a vaginal source from a patient who has had atotal hysterectomy with removal of cervix wassubmitted, please contact the testing laboratoryfor alternative testing options.For additional information, please refer tohttp://education.Delight/faq/QJZ434r4(This link if provided for information/educational purposes only.)THIS TEST WAS PERFORMED AT:[employer] [address] [place] [phone] ROMERO MD HPV mRNA E6/E7 [facility] HPV 16 RNA [facility] HPV 18/45 RNA [facility] 03/09/2023 12:4 9 PM EDT 03/09/2023 1:40 PM EDT [facility] External Provider LAB CYT OLOGY ORDERABLES Final Result [facility] [address] [place] [phone] * Pap Smear (03/09/2023 12:49 PM EDT) 03/09/2023 12:4 9 PM EDT 03/09/2023 1:40 PM EDT Narrative [facility] - 03/12/2023 11:18 AM EDT ----- ------- Name: Elzbieta De La Paz Age/Sex: 63/F [facility] 1960 [id number] [id number] Attend Dr: Alexis Fernandez MD Re03/09/23 Status: DEP REF Location: [facility] Disch: ----- ------- SPEC : [id number] RECD: 03/09/23 STATUS: DAVID HOLT NUM: [id number] SHIVANI: 03/09/[address] [facility] [address]: Alexis Fernandez MD ENTERED: 03/09/23 SP TYPE: Pap Smr OTHR DR: Mukesh Vincent NP ORDERED: Pap Smear Interpretation Satisfactory for evaluation. Atrophic. Negative for intraepithelial lesion or malignancy. HPV mRNA E6/E7: NOT DETECTED This assay detects E6/E7 viral messenger RNA (mRNA) from 14 high-risk HPV types (16, 18, 31, 33, 35, 39, 45, 51, 52, 56, 58, 59, 66, 68) HPV testing performed by [employer], [place], [place]. See reference laboratory pion of the EMR for entire report. Clinical Information LMP: Postmenopausal Previous PAP test: 2019, Unknown findings Material Received ThinPrep-Cervical Copies To: Mukesh Vincent NP [address] [address] Alexis Fernandez MD [address] [place] [address]. [address] [place] [phone] ----- ------- Signed (signature on file) RUBEN Mercedes ([facility]) 03/12/23 1118 ----- ------- END OF REPORT [facility] External Provider LAB CYT ELVIADino ORDERABLES Final Result Performing Organization Address City/[facility]/ZIP Co de Phone Number [facility] [address] [place] [phone] * Hepatitis C Antibody with Reflex to HCV, RNA, Quantitative, Real-Time PCR (07/03/2022 9:43 AM EST) Pathologist [facility] Hepatitis C Antibody NON-REACT GRABIEL NON-REACT GRABIEL [employer] [place] [employer] Index <0.02 <1.00 [employer] [place] [employer] Comment: HCV antibody was non-reactive. There is no laboratory evidence of HCV infection. In most cases, no further action is required. However, if recent HCV exposure is suspected, a test for HCV RNA (test code 13676) is suggested. For additional information please refer to http://education.Delight/faq/PME64f7 (This link is being provided for informational/ educational purposes only.) Blood Venous blood specimen / Unknown 07/03/2022 9:43 AM EST 07/03/2022 9:43 AM EST Narrative [facility] - 07/04/2022 12:47 AM EST FASTING:YES FASTING: YES Mukesh Vincent [facility] LAB BLOOD ORDERABLES Final Res ult Performing Organization Address City/[facility]/ZIP Co de Phone Number [facility] [address] [place] [address], [place] [address] [employer] [place] [employer] [address] [facility], [address] [phone] * Colonoscopy (03/08/2020) Colonoscopy Normal Normal Narrative Tamika Jefferson - 03/08/2020 Recommended 5 year follow up us Historical Provider HEALTH MAINTENANCE Final Result from Last 3 Months or Most Recently Relevant to Health Maintenance Insurance [employer] PPO Care Teams Coin Box Collector Relationship Specialty Start Date End Date Yumiko Krishna MD [address] [place] [phone] PCP - General Family Medicine 07/30/23
--- OUTSIDE RECORDS SUMMARY | 2025-02-22 07:32 | XMS_ITS | Encounter Summary ---
Author Organization [employer] Address 75 [facility] 7t [place] [address] Care Team Providers Care Credit Collections Rep Name Role Phone Yumiko Krishna MD Primary Care Provider [phone] Encounter Details Date Type Department Care Team (Late st Contact Info) Description 11/05/2023 Orders Only [facility] [address] [place], [place] [phone] Yumiko Krishna MD 230 [place], [place] [phone] Hypertension, unspecified type Social History Tobacco Use [...] Description 03/21/2025 9:45 AM EDT Office Visit [facility] [address] [place] [phone] Yumiko Krishna MD [address] [place] [phone] documented as of this encounter Visit Diagnoses Diagnosis Hypertension, unspecified type documented in this encounter Additional Health Concerns Assessment Noted Time PHQ-9 Depression Total Score: 0 10/11/19 24 2:22 PM EDT documented as of this encounter Care Teams Credit Collections Rep Relationship Specialty Start Date End Date Yumiko Krishna MD [address] [place] [address] PCP - General Family Medicine 07/30/23 documented as of this encounter
--- OUTSIDE RECORDS SUMMARY | 2025-02-22 07:32 | XMS_ITS | Encounter Summary ---
Author Organization [employer] Address 75 [facility] 7t [place] [address] Care Team Providers Care Honing Machine Operator Name Role Phone Yumiko Krishna MD Primary Care Provider [phone] Reason for Visit * Reason Onset Date Comments Med Refill 03/02/2024 Encounter Details Date Type Department Care Team ([facility] st Contact Info) Description 03/02/2024 Refill [facility] 230 [place], [place] [phone] Yumiko Krishna MD 230 [place], [place] [phone] Hypertension, unspecified type Social History Tobacco Use [...] Description 03/21/2025 9:45 AM EDT Office Visit [facility] [address] [place] [address] Yumiko Krishna MD 230 [place] [address] documented as of this encounter Visit Diagnoses Diagnosis Hypertension, unspecified type documented in this encounter Additional Health Concerns Assessment Noted Time PHQ-9 Depression Total Score: 0 10/11/19 24 2:22 PM EDT documented as of this encounter Care Teams Honing Machine Operator Relationship Specialty Start Date End Date Yumiko Krishna MD [address] [place] [address] PCP - General Family Medicine 07/30/23 documented as of this encounter
== END 2025-02-22 07:27 | disposition home or self-care (01) ==
LOC: HO.MAMMO 07:26
PROVIDERS: PCP Family Medicine; Visit Provider Family Medicine
DX: Z12.31 Encounter for screening mammogram for malignant neoplasm of breast (principal)
CPT/HCPCS: 77063; 77067

== ENCOUNTER → 2025-02-22 08:30 | Outpatient (BNV) | payer OTHER, SELFPAY | PROVIDERS: PCP Family Medicine; Visit Provider Internal Medicine | DX: Z12.31 Encounter for screening mammogram for malignant neoplasm of breast (principal) | CPT/HCPCS: 77063; 77067 ==

== ENCOUNTER 2025-02-28 10:11 | Outpatient (REF) | payer OTHER, SELFPAY ==
--- OUTSIDE RECORDS SUMMARY | 2025-02-28 12:29 | XMS_ITS | Encounter Summary ---
Author Organization [employer] Address 75 [facility] 7t [place] [address] Care Team Providers Care Black Top Roller Name Role Phone Yumiko Krishna MD Primary Care Provider [phone] Reason for Visit * Reason Comments Med Refill Encounter Details Date Type Department Care Team (Late st Contact Info) Description 02/28/[address] [facility] [address] [place], [place] [phone] Nadya Atkinson FNP 230 [place] [address] Hypertension, unspecified type Social History Tobacco Use [...] Description 03/21/2025 9:45 AM EDT Office [address] [facility] [address] [place] [address] Yumiko Krishna MD 230 [place] [address] documented as of this encounter Visit Diagnoses Diagnosis Hypertension, unspecified type documented in this encounter Additional Health Concerns Assessment Noted Time PHQ-9 Depression Total Score: 0 10/11/19 24 2:22 PM EDT documented as of this encounter Care Teams Black Top Roller Relationship Specialty Start Date End Date Yumiko Krishna MD 230 [place] [address] PCP - General Family Medicine 07/30/23 documented as of this encounter
--- OUTSIDE RECORDS SUMMARY | 2025-02-28 12:29 | XMS_ITS | Encounter Summary ---
Author Organization [employer] Address 75 [facility] 7t [place] [address] Care Team Providers Care Logging Rafter Laborer Name Role Phone Yumiko Krishna MD Primary Care Provider Encounter Details Date Type Department Care Team (Late st Contact Info) Description 10/27/2024 Orders Only [facility] 230 [place], [place] [phone] Yumiko Krishna MD 230 [place], [place] [phone] Hypertension, unspecified type (Primary Dx); Dyslipidemia; Hair [...] Description 03/21/2025 9:45 AM EDT Office Visit [facility] 230 [place], [place] [phone] Yumiko Krishna MD [address] [place], [place] [phone] Scheduled Orders Name Type Priority Associated Diagnoses [...] 10:31 AM EDT) Triglycerides 53 <150 mg/dL [facility] Comment:Desirable Triglyceri de: less than 150 mg/dLBorderline High Triglyceride 150-199 mg/dLHigh Triglyceride: 200-499 mg/dLVery High Triglyceride: greater than or equal to 5OO mg/dL Cholesterol 159 <200 mg/dL [facility] Comment:Desirable Cholestero l: less than 200 mg/dLBorderline High Cholesterol: 200-239 mg/dLHigh Cholesterol: greater than 239 mg/dL LDL Cholesterol Calculated 91 <100 mg/dL [facility] Comment:Desirable LDL: less than 100 mg/dLNear Optimal/Above Optimal LDL: 110- 129 mg/dLBorderline High LDL: 130-159 mg/dLHigh LDL: 160-189 mg/dLVery High LDL: greater than or equal to 190 mg/dL HDL Cholesterol 58 >40 mg/dL [facility] Comment:Desirable HDL: great er than 40 mg/dL Note: This HDL assay may give artificially low results in patients with liver disease. Blood 11/02/2024 10:3 1 AM EDT 11/02/2024 11:44 AM EDT us Yumiko Krishna MD LAB BLOOD ORDERABLES Final Resul t [facility] [address] [place] [address] [phone] * (ABNORMAL) Comprehensive Metabolic Panel (11/02/2024 10:31 AM EDT) Sodium 146(H) 135 - 145 mmol/L [facility] Potassium 3.7 3.3 - 5.1 mmol/L [facility] Chloride 107 96 - 108 mmol/L [facility] Carbon Dioxide 31(H) 22 - 29 mmol/L [facility] Anion Gap 12 12 - 20 [facility] Urea Nitrogen (BUN) 14 9 - 16 mg/dL [facility] Creatinine, Serum 0.69 0.5 - 1.4 mg/dL [facility] Estimated Glomerular Filt Rate >60 [facility] Comment:Chronic Kidney Disea se: Estimated GFR < 60 mL/min/1.02b2Ztgsql Kidney Disease: Estimated GFR < 15 mL/min/1.73m2 Glucose 90 60 - 115 mg/dL [facility] Calcium 9.8 8.4 - 10.2 mg/dL [facility] Bilirubin, Total 1.2(H) 0.0 - 1.0 mg/dL [facility] Aspartate Amino Transferase 26 5 - 31 U/L [facility] Alanine Aminotransferase 20 0 - 31 U/L [facility] Total Protein 7.1 6.5 - 8.0 g/dL [facility] Albumin Level 4.2 3.5 - 5.0 g/dL [facility] Alkaline Phosphatase 77 39 - 117 U/L [facility] Blood Venous blood specimen / Unknown 11/02/2024 10:31 AM EDT 11/02/2024 11:44 AM EDT Yumiko Krishna MD LAB BLOOD ORDERABLES Final Resul t [facility] [address] [place] [phone] * Hemoglobin A1c (11/02/2024 10:31 AM EDT) Hemoglobin A1c 5.8 <6.0 % [facility] Comment:Hemoglobin A1C Refer ence Range Adults: 4.8 - 6.0 % Non diabetic: < 6.0 % Goal: < 7.0 %Additional Action Suggested: > 8.0 %Note: Hemoglobin A1c results are invalid for patients with abnormal amounts of HbF. Blood transfusions may impact the HbA1c concentration in the patient sample. Estimated Average Glucose 120 mg/dL [facility] Comment:eAG = Estimated ave rage glucose which is %A1C expressed asaverage glucose, using the formula of the E7F-JajhvwyDjhojxd Glucose study (ADAG), Diabetes Care, Vol.31,#8,2007 Blood Venous blood specimen / Unknown 11/02/2024 10:31 AM EDT 11/02/2024 11:46 AM EDT Yumiko Krishna MD LAB BLOOD ORDERABLES Final Resul t Performing Organization Address [facility] Co de Phone Number [facility] [address] [place] [phone] * TSH with Reflex to Free T4 (11/02/2024 10:31 AM EDT) TSH reflex Free T4 1.93 0.32 - 4.0 uIU/mL [facility] Blood 11/02/2024 10:3 1 AM EDT 11/02/2024 11:44 AM EDT us Yumiko Krishna MD LAB BLOOD ORDERABLES Final Resul t Performing Organization Address [facility] Co de Phone Number [facility] [address] [place] [address] [phone] documented in this encounter Visit Diagnoses Diagnosis Hypertension, unspecified type- Primary Dyslipidemia Other and unspecified hyperlipidemia Hair loss Unspecified alopecia Screening for diabetes mellitus documented in this encounter Additional Health Concerns Assessment Noted Time PHQ-9 Depression Total Score: 0 05/22/20 24 1:03 PM EST documented as of this encounter Care Teams Logging Rafter Laborer Relationship Specialty Start Date End Date Yumiko Krishna MD [address] [place] [phone] PCP - General Family Medicine 07/30/23 documented as of this encounter
--- OUTSIDE RECORDS SUMMARY | 2025-02-28 12:29 | XMS_ITS | Encounter Summary ---
Author Organization [employer] Address 75 [facility] 7t [place] [address] Care Team Providers Care Baseball Glove Stuffer Name Role Phone Yumiko Krishna MD Primary Care Provider Reason for Referral * Consultation (Urgent) - Closed Specialty Diagnoses / Procedures Referred By Sharlene cordero Referred To Contact Orthopaedic Surgery Diagnoses Chronic pain of left knee Yumiko Krishna MD [address] [place] [address] Phone: tel: fax: [facility] [address] [place] [address] Phone: tel: Referral ID Status Reason Start Date Expiration Date V isits Requested Visits Authorized [id number] Closed Specialty Services Required 01/10/2024 01/09/2025 1 1 Encounter Details Date Type Department Care Team (Late st Contact Info) Description 01/10/2024 Orders Only [facility] [address] [place], [place] [phone] Yumiko Krishna MD [address] [place], [place] [phone] Chronic pain of left knee (Primary Dx) [...] Description 03/21/2025 9:45 AM EDT Office Visit [facility] [address] [place] [address] Yumiko Krishna MD [address] [place] [address] Scheduled Referrals Name Type Priority Associated Diagnoses [...] documented as of this encounter Care Teams Baseball Glove Stuffer Relationship Specialty Start Date End Date Yumiko Krishna MD [address] [place] [address] PCP - General Family Medicine 07/30/23 documented as of this encounter
--- OUTSIDE RECORDS SUMMARY | 2025-02-28 12:29 | XMS_ITS | Encounter Summary ---
Author Organization [employer] Address 75 [facility] 7t [place] [address] Care Team Providers Care Groutman Name Role Phone Yumiko Krishna MD Primary Care Provider [phone] Reason for Visit * Reason Comments Med Refill Encounter Details Date Type Department Care Team (Late st Contact Info) Description 08/10/2023 Refill [facility] [address] [place], [place] [phone] Nadya Atkinson FNP [address] [place] [address] Hypertension, unspecified type Social History Tobacco Use [...] Description 03/21/2025 9:45 AM EDT Office Visit [facility] [address] [place] [phone] Yumiko Krishna MD [address] [place] [address] documented as of this encounter Visit Diagnoses Diagnosis Hypertension, unspecified type documented in this encounter Additional Health Concerns Assessment Noted Time PHQ-9 Depression Total Score: 0 06/26/19 23 1:17 PM EST documented as of this encounter Care Teams Groutman Relationship Specialty Start Date End Date Yumiko Krishna MD [address] [place] [address] PCP - General Family Medicine 07/30/23 documented as of this encounter
--- OUTSIDE RECORDS SUMMARY | 2025-02-28 12:29 | XMS_ITS | Encounter Summary ---
Author Organization [employer] Address 75 [facility] 7t [place] [address] Care Team Providers Care Leather Production Machine Operator Name Role Phone Yumiko Krishna MD Primary Care Provider [phone] Encounter Details Date Type Department Care Team (Late st Contact Info) Description 02/22/2025 Orders Only [facility] [address] [place], [place] [phone] Yumiko Krishna MD [address] [place], [place] [phone] Social History Tobacco Use Types Packs/Day Years [...] Office Visit [facility] [address] [place] [address] Yumiko Krishna MD [address] [place] [address] documented as of this encounter Procedures Procedure Name Priority Date/Time Associated Diagnosis Comments BI MAMMOGRAM SCREENING TOMOSYNTHESIS BILATERAL Routine 02/22/2025 7:37 AM EDT documented in this encounter Results * BI Mammogram Screening Tomosynthesis Bilateral (02/22/2025 7:37 AM EDT) Anatomical Region Laterality Modality Breast Bilateral Mammography 02/22/2025 7:37 AM EDT Narrative 02/26/2025 12:01 PM EDT [facility] [address] [place] [address] Mammography Report Signed Patient: Elzbieta De La Paz MR#: [id number] 61 : 1960 Acct:[id number] Age/Sex: 65 / F ADM Date: 02/22/25 Loc: [facility] Attending Dr: Yumiko Krishna MD Ordering Physician: Yumiko Krishna MD Results: 1Negative Date of Service: 02/22/25 Follow Up: 1 Year From Orig inal Mammogram Procedure(s): MM tomosynthesis screening BI Accession Number(s): [id number] cc: Yumiko Krishna MD Reason For Exam: Z06.06 EXAMINATION: MM SCREENING DIGITAL BREAST TOMOSYNTHESIS, BILATERAL [...] mammogram. Electronically signed by: Allyn Milner DO 02/26/2025 11:57 AM EDT Dictated By: Allyn Milner DO Signed By: <Electronically signed by Allyn Milner DO in OV> 02/26/25 1157 DD/ 0737 TD/TT: 02/22/25 0747 Bag Machine Helper: Procedure Note Donotuseinterpreter, Image - 02/26/2025 [facility] [address] [place] [address] Mammography Report Signed Patient: Consuelo De La Paz#: [id number] 61 : 1960cct:[id number] Age/Sex: 65 / FADM Date: 02/22/25 Loc: [facility] Attending Dr: Yumiko Krishna MD Ordering Physician: Yumiko Krishna MDResults: 1Negative Date of Service: 02/22/25Follow Up: 1 Year From Orig inal Mammogram Procedure(s): MM tomosynthesis screening BI Accession Number(s): [id number] cc: Yumiko Krishna MD Reason For Exam: Z12.31 EXAMINATION: MM SCREENING DIGITAL BREAST TOMOSYNTHESIS, BILATERAL [...] mammogram. Electronically signed by: Allyn Milner DO 02/26/2025 11:57 AM EDT RP Dictated By: Allyn Milner DO Signed By: <Electronically signed by Allyn Milner DO in OV> 02/26/25 1157 DD/ 0737 TD/TT: 02/22/25 0747 Bag Machine Helper: Yumiko Krishna MD IMG BI PROCEDURES Final Result documented in this encounter Visit Diagnoses Not on filedocumented in this encounter Additional Health Concerns Assessment Noted Time PHQ-9 Depression Total Score: 0 05/22/20 24 1:03 PM EST documented as of this encounter Care Teams Leather Production Machine Operator Relationship Specialty Start Date End Date Yumiko Krishna MD [address] [place] [address] PCP - General Family Medicine 07/30/23 documented as of this encounter
--- OUTSIDE RECORDS SUMMARY | 2025-02-28 12:29 | XMS_ITS | Encounter Summary ---
Author Organization [employer] Address 75 [facility] 7t [place] [address] Care Team Providers Care Vp Customer Service Name Role Phone Yumiko Krishna MD Primary Care Provider [phone] Encounter Details Date Type Department Care Team (Late st Contact Info) Description 01/10/2024 Orders Only [facility] [address] [place], [place] [phone] Yumiko Krishna MD [address] [place], [place] [phone] Social History Tobacco Use Types Packs/Day Years [...] 9:45 AM EDT Office Visit [facility] [address] [place] [address] Yumiko Krishna MD [address] [place] [address] documented as of this encounter Visit Diagnoses Not on filedocumented in this encounter Additional Health Concerns Assessment Noted Time PHQ-9 Depression Total Score: 0 10/11/19 24 2:22 PM EDT documented as of this encounter Care Teams Vp Customer Service Relationship Specialty Start Date End Date Yumiko Krishna MD [address] [place] [address] PCP - General Family Medicine 07/30/23 documented as of this encounter
--- OUTSIDE RECORDS SUMMARY | 2025-02-28 12:29 | XMS_ITS | Encounter Summary ---
Author Organization [employer] Address [address] [place] [address] 7t [place] [address] Care Team Providers Care Biology Department Chair Name Role Phone Mukesh Vincent CARL Primary Care Provider Unavail able Yumiko Krishna MD Primary Care Provider [phone] Reason for Visit * Reason Onset Date Comments Med Refill 11/24/2022 Encounter Details Date Type Department Care Team (Late st Contact Info) Description 11/24/2022 Refill [facility] [address] [place] [address] [phone] Maia Leyva FNP Hypertension, unspecified type Social [...] Description 03/21/2025 9:45 AM EDT Office Visit [facility] [address] [place] [address] [phone] Yumiko Krishna MD 230 [place], [place] [phone] documented as of this encounter Visit Diagnoses Diagnosis Hypertension, unspecified type documented in this encounter Additional Health Concerns Assessment Noted Time PHQ-9 Depression Total Score: 0 06/26/19 1:17 PM EST documented as of this encounter Care Teams Biology Department Chair Relationship Specialty Start Date End Date Mukesh Vincent AGNP PCP - General Family Medicine 06/12/22 02/18/23 Yumiko Krishna MD [address] [place] [phone] PCP - General Family Medicine 07/30/23 documented as of this encounter
--- OUTSIDE RECORDS SUMMARY | 2025-02-28 12:29 | XMS_ITS | Encounter Summary ---
Author Organization [employer] Address 75 [facility] 7t [place] [address] Care Team Providers Care Sheetmetal Trades Worker Name Role Phone Yumiko Krishna MD Primary Care Provider [phone] Encounter Details Date Type Department Care Team (Late st Contact Info) Description 11/05/2023 Orders Only [facility] [address] [place], [place] [phone] Yumiko Krishna MD [address] [place], [place] [phone] Hypertension, unspecified type Social History Tobacco Use [...] Description 03/21/2025 9:45 AM EDT Office Visit [facility] [address] [place] [address] Yumiko Krishna MD [address] [place] [address] documented as of this encounter Visit Diagnoses Diagnosis Hypertension, unspecified type documented in this encounter Additional Health Concerns Assessment Noted Time PHQ-9 Depression Total Score: 0 10/11/19 24 2:22 PM EDT documented as of this encounter Care Teams Sheetmetal Trades Worker Relationship Specialty Start Date End Date Yumiko Krishna MD [address] [place] [phone] PCP - General Family Medicine 07/30/23 documented as of this encounter
--- OUTSIDE RECORDS SUMMARY | 2025-02-28 12:29 | XMS_ITS | Clinical Summary ---
Author Organization [employer] Address [address] [facility] 7[address] [place] [address] Care Team Providers Care Medical Services Assistant Name Role Phone Yumiko Krishna MD Primary Care Provider [phone] Allergies No known active allergies Medications Diclofenac Sodium 1 % gel Apply 2 g topically 4 times daily. 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 White, [facility] - cecal polyp and transverse colon [...] presence of risk-enhancing factors. - (IIb, B-R)) FOL=563 Do not eat grapefruit or drink grapefruit [...] 03/2025. She has an upcoming appointment with [facility] for a pap. Encounters Date Type Department Care Team Description 02/22/2025 Orders Only [facility] [address] Yumiko Krishna MD 02/14/2025 Telephone [place] [address] Yumiko Krishna MD Appointment 02/12/2025 Refill [facility] [address] [place] [address] Yumiko Krishna MD Pure hypercholesterolemia 02/09/2025 Refill [facility] [address] [place] [phone] Yumiko Krishna MD Hypertension, unspecified type from [...] 03/21/2025 9:45 AM EDT Office Visit [facility] 230 [place] [address] Yumiko Krishna MD [address] [place] [address] Health Maintenance Due Date Last Done Comments [...] Additional history exists Influenza Vaccine (#1) 2025 , 03/20/2022, 04/25/2021, Additional history exists Colonoscopy 03/08/2025 03/08/2020 Colorectal Cancer Screening 03/08/2025 Alcohol/Substance Use Screening 05/22/2025 05/22/2024 Depression Screening 05/22/2025 05/22/2024, 05/22/20 24 Tobacco Screening 05/22/2025 05/22/2024 Diabetes: Hemoglobin A1C 11/02/2025 025, 10/12/2023, 08/27/2021, Additional history exists Pap Smear 03/09/2026 03/09/2023 Mammogram 02/22/2027 02/22/2025, 09/0 08/2023, 01/12/2023, Additional history exists Cervical Cancer Screening 03/09/2028 HPV/Cotest 03/09/2028 03/09/2023, [...] TOMOSYNTHESIS BILATERAL Routine 02/22/2025 7:37 AM EDT HEMOGLOBIN A1C Routine 11/02/2024 10:31 AM EDT Screening for diabetes mellitus LIPID PANEL WITH REFLEX TO DIRECT LDL Routine 11/02/2024 10:31 AM EDT Dyslipidemia HPV MRNA E6/E7 REFLEX TO HPV 16, 18/45 Routine 03/09/2023 12:49 PM EDT PAP SMEAR Routine 03/09/2023 12:49 PM EDT HEPATITIS C AB W/REFL TO HCV RNA, QN, PCR Routine 07/03/2022 9:43 AM EST Routine health maintenance HM COLONOSCOPY Routine 03/08/2020 from Last 3 Months or Most Recently Relevant to Health Maintenance Results * BI Mammogram Screening Tomosynthesis Bilateral (02/22/2025 7:37 AM EDT) Anatomical Region Laterality Modality Breast Bilateral Mammography 02/22/2025 7:37 AM EDT Narrative 02/26/2025 12:01 PM EDT [facility] [address] [place] [address] Dr. Mayer, [place]HAEL [address] Mammography Report Signed Patient: Elzbieta De La Paz MR#: [id number] 61 : 1960 Acct:[id number] Age/Sex: 65 / F ADM Date: 02/22/25 Loc: HO.MAMMO Attending Dr: Yumiko Krishna MD Ordering Physician: Yumiko Krishna MD Results: 1Negative Date of Service: 02/22/25 Follow Up: 1 Year From Orig ina Mammogram Procedure(s): MM tomosynthesis screening BI Accession Number(s): [id number] cc: Yumiko Krishna MD Reason For Exam: [...] 02/26/25 1157 DD/ 0737 TD/TT: 02/22/25 0747 Carton Filler: Procedure Note Donotuseinterpreter, Image - 02/26/2025 [facility] [address] Mayer, MICHAEL [address] Mammography Report Signed Patient: Consuelo De La Paz#: [id number] 61 : 1960cct:[id number] Age/Sex: 65 / FADM Date: 02/22/25 Loc: GABRIELLA Attending Dr: Yumiko Krishna MD Ordering Physician: Yumiko Krishna MDResults: 1Negative Date of Service: 02/22/25Follow Up: 1 Year From [facility] Mammogram Procedure(s): MM tomosynthesis screening BI Accession Number(s): [id number] cc: Yumiko Krishna MD Reason For Exam: [...] 02/26/25 1157 DD/ 0737 TD/TT: 02/22/25 0747 Carton Filler: Yumiko Krishna MD [facility] BI PROCEDURES Final Result * Lipid Panel with Reflex to Direct LDL (11/02/2024 10:31 AM EDT) Triglycerides 53 <150 mg/dL [facility] Comment:Desirable Triglyceri de: less than 150 mg/dLBorderline High Triglyceride 150-199 mg/dLHigh Triglyceride: 200-499 mg/dLVery High Triglyceride: greater than or equal to 5OO mg/dL Cholesterol 159 <200 mg/dL [facility] Comment:Desirable Cholestero l: less than 200 mg/dLBorderline High Cholesterol: 200-239 mg/dLHigh Cholesterol: greater than 239 mg/dL LDL Cholesterol Calculated 91 <100 mg/dL [facility] Comment:Desirable LDL: less than 100 mg/dLNear Optimal/Above Optimal LDL: 110- 129 mg/dLBorderline High LDL: 130-159 mg/dLHigh LDL: 160-189 mg/dLVery High LDL: greater than or equal to 190 mg/dL HDL Cholesterol 58 >40 mg/dL [facility] Comment:Desirable HDL: great er than 40 mg/dL Note: This HDL assay may give artificially low results in patients with liver disease. Blood 11/02/2024 10:3 1 AM EDT 11/02/2024 11:44 AM EDT Yumiko Krishna MD LAB BLOOD ORDERABLES Final Resul t Performing Organization Address [facility] Co de Phone Number [facility] [address] [place] [phone] * Hemoglobin A1c (11/02/2024 10:31 AM EDT) Hemoglobin A1c 5.8 <6.0 % [facility] Comment:Hemoglobin A1C Refer ence Range Adults: 4.8 - 6.0 % Non diabetic: < 6.0 % Goal: < 7.0 %Additional Action Suggested: > 8.0 %Note: Hemoglobin A1c results are invalid for patients with abnormal amounts of HbF. Blood transfusions may impact the HbA1c concentration in the patient sample. Estimated Average Glucose 120 mg/dL [facility] Comment:eAG = Estimated ave rage glucose which is %A1C expressed asaverage glucose, using the formula of the H3T-KwzicccYujknlc Glucose study (ADAG), Diabetes Care, Vol.31,#8,Jan. 2007 Blood Venous blood specimen / Unknown 11/02/2024 10:31 AM EDT 11/02/2024 11:46 AM EDT us Yumiko Krishna MD LAB BLOOD ORDERABLES Final Resul t Performing Organization Address [facility]/ZIP Co de Phone Number [facility] [address] [place] [phone] * HPV mRNA E6/E7 w/Reflex to HPV Genotypes 16, 18/45 (03/09/2023 12:49 PM EDT) HPV nRNA E6/E7 Not Detected Not Detected [facility] Comment:Methodology: Transcr iption-Mediated AmplificationThis assay detects E6/E7 viral messenger RNA (mRNA) from 14high-risk HPV types (16,18,31,33,35,39,45,51,52,56,58,59,66,68).Cervical sources are required for HPV testing.If a vaginal source from a patient who has had atotal hysterectomy with removal of cervix wassubmitted, please contact the testing laboratoryfor alternative testing options.For additional information, please refer tohttp://education.Hatchtech/faq/CLY927o4(This link if provided for information/educational purposes only.)THIS TEST WAS PERFORMED AT:[facility] [place] [phone] ROMERO MD HPV mRNA E6/E7 [facility] HPV 16 RNA [facility] HPV 18/45 RNA [facility] 03/09/2023 12:4 9 PM EDT 03/09/2023 1:40 PM EDT [facility] Provider LAB CYT OLOGY ORDERABLES Final Result [facility] [address] [place] [phone] * Pap Smear (03/09/2023 12:49 PM EDT) 03/09/2023 12:4 9 PM EDT 03/09/2023 1:40 PM EDT Narrative [facility] - 03/12/2023 11:18 AM EDT ----- ------- Name: Elzbieta De La Paz Age/Sex: 63/F : 1960 Unit#: [id number] Attend Dr: Alexis Fernandez MD Re03/09/23 Status: DEP REF Location: [facility] Disch: ----- ------- SPEC : [id number] RECD: 03/09/23 STATUS: DAVID HOLT NUM: [id number] SHIVANI: 03/09/[address] [facility] [address]: Alexis Fernandez MD ENTERED: 03/09/230 SP TYPE: Pap Smr OTHR DR: Mukesh Vincent NP ORDERED: Pap Smear Interpretation Satisfactory for evaluation. Atrophic. Negative for intraepithelial lesion or malignancy. HPV mRNA E6/E7: NOT DETECTED This assay detects E6/E7 viral messenger RNA (mRNA) from 14 high-risk HPV types (16, 18, 31, 33, 35, 39, 45, 51, 52, 56, 58, 59, 66, 68) HPV testing performed by [facility], [place], [place]. See reference laboratory pion of the EMR for entire report. Clinical Information LMP: Postmenopausal Previous PAP test: 2019, Unknown findings Material Received ThinPrep-Cervical Copies To: Mukesh Vincent NP [address] [phone] Alexis Fernandez MD [address] [place] [address] [address] ----- ------- Signed (signature on file) RUBEN Mercedes ([facility]) 03/12/23 1118 ----- ------- END OF REPORT [facility] External Provider LAB CYT [facility] [place] ORDERABLES Final Result [facility] [address] [place] [phone] * Hepatitis C Antibody with Reflex to HCV, RNA, Quantitative, Real-Time PCR (07/03/2022 9:43 AM EST) Pathologist [facility] Hepatitis C Antibody NON-REACT GRABIEL NON-REACT GRABIEL [facility] [place] [employer] Index <0.02 <1.00 [facility] Comment: HCV antibody was non-reactive. There is no laboratory evidence of HCV infection. In most cases, no further action is required. However, if recent HCV exposure is suspected, a test for HCV RNA (test code 06000) is suggested. For additional information please refer to http://education.Fonmatch.GetYou/faq/UTY85w2 (This link is being provided for informational/ educational purposes only.) Blood Venous blood specimen / Unknown 07/03/2022 9:43 AM EST 07/03/2022 9:43 AM EST Narrative [facility] - 07/04/2022 12:47 AM EST FASTING:YES FASTING: YES Mukesh Vincent [facility] LAB BLOOD ORDERABLES Final Res ult [facility] [address] [facility] [place] [phone] [facility] [place] [facility] [address], ([address]) [place] [phone] * Hm Colonoscopy (03/08/2020) Colonoscopy Normal Normal Narrative Tamika Jefferson - 03/08/2020 Recommended 5 year follow up Historical Provider MD HEALTH MAINTENANCE Final Result from Last 3 Months or Most Recently Relevant to Health Maintenance Insurance [employer] PPO Care Teams Medical Services Assistant Relationship Specialty Start Date End Date Yumiko Krishna MD [address] [place] [address] PCP - General Family Medicine 07/30/23
--- OUTSIDE RECORDS SUMMARY | 2025-02-28 12:29 | XMS_ITS | Encounter Summary ---
Author Organization [employer] Address [address] [facility] 7t [place] [address] Care Team Providers Care Auction Block Clerk Name Role Phone Yumiko Krishna MD Primary Care Provider [phone] Reason for Visit * Reason Onset Date Comments Med Refill 03/02/2024 Encounter Details Date Type Department Care Team ([facility] st Contact Info) Description 03/02/2024 Refill [facility] 230 [place], [place] [phone] Yumiko Krishna MD [address] [place], [place] [phone] Hypertension, unspecified type Social History Tobacco Use [...] 9:45 AM EDT Office Visit [facility] [address] [place] [phone] Yumiko Krishna MD 230 [place] [address] documented as of this encounter Visit Diagnoses Diagnosis Hypertension, unspecified type documented in this encounter Additional Health Concerns Assessment Noted Time PHQ-9 Depression Total Score: 0 10/11/19 24 2:22 PM EDT documented as of this encounter Care Teams Auction Block Clerk Relationship Specialty Start Date End Date Yumiko Krishna MD [address] [place] [phone] PCP - General Family Medicine 07/30/23 documented as of this encounter
--- OUTSIDE RECORDS SUMMARY | 2025-02-28 12:29 | XMS_ITS | Encounter Summary ---
Author Organization [employer] Address [address] [facility] 7t [place] [address] Care Team Providers Care Machine Carton Marker Name Role Phone Yumiko Krishna MD Primary Care Provider [phone] Encounter Details Date Type Department Care Team (Late st Contact Info) Description 04/16/2023 Abstract [facility] [address] [place] [address] Tamika Jefferson Social History Tobacco Use Types [...] Description 03/21/2025 9:45 AM EDT Office Visit [facility] [address] [place] [address] Yumiko Krishna MD [address] [place], [place] [phone] documented as of this encounter Procedures Procedure [...] documented as of this encounter Care Teams Machine Carton Marker Relationship Specialty Start Date End Date Yumiko Krishna MD [address] [place], [place] [phone] PCP - General Family Medicine 07/30/23 documented as of this encounter
[2025-02-28 13:07] LABS: Microalbum/Creatinine Ratio Ur 10.7 ug/mg cr (<30)
== END 2025-02-28 10:12 | disposition home or self-care (01) ==
LOC: HO.HHCL 10:11
PROVIDERS: PCP Family Medicine; Visit Provider Family Medicine
DX: I10 Essential (primary) hypertension (principal)
CPT/HCPCS: 82043; 82570

== ENCOUNTER 2025-03-04 10:20 | Emergency (ER) | payer OTHER, SELFPAY ==
--- NOTE | ~2025-03-04 | XR_ITS ---
CLINICAL HISTORY: pain no injury 3 view right shoulder Comparison: None provided Findings: No fractures or dislocations. Moderate degenerative changes of the glenohumeral and acromioclavicular joints. No erosions. No radiopaque foreign body. IMPRESSION: Moderate degenerative changes. No acute process. This document has been electronically signed by: Destin Urias MD on 03/04/2025 11:51:01
[2025-03-04 10:24] VITALS: BP 146/75; PULSE 95; RESP 18; TEMP 36.6; O2SAT 99; BMI 29.5
--- NOTE | 2025-03-04 11:17 | ED.EXTPRO ---
HPI - Extremity Problem General Chief complaint: Extremity Injury, Upper Stated complaint: R shoulder pain Time Seen by Provider: 03/04/25 11:14 Source: patient Mode of arrival: ambulatory Limitations: no limitations History of Present Illness ED Provider: Yadira Reed APRN HPI Narrative: 65 yo female with PMH of HTN, OA, right hand dominant here with complaints of right shoulder pain/swelling x 4 days. No known injury/trauma. Pain radiates from right shoulder to right elbow. No numbness/tingling or weakness of the extremity. Related Data Home Medications ?Medication ?Instructions ?Recorded ?Confirmed hydrochlorothiazide 25 mg tablet 1 tab PO DAILY 03/05/20 04/01/20 losartan 100 mg tablet 1 tab PO DAILY 03/05/20 04/01/20 multivitamin 1 tab PO DAILY 03/05/20 04/01/20 nifedipine 30 mg tablet,extended 30 mg PO DAILY 03/27/22 release 24 hr atorvastatin 10 mg tablet 10 mg PO DAILY 03/09/23 Previous Rx's ?Medication ?Instructions ?Recorded cyclobenzaprine 10 mg tablet 10 mg PO Q8H PRN muscle spasm #15 03/04/25 tabs naproxen 500 mg tablet 500 mg PO BID PRN pain #30 tabs 03/04/25 Allergies Allergy/AdvReac Type Severity Reaction Status Date / Time No Known Allergies Allergy Verified 03/04/25 10:26 Review of Systems Review of Systems: Yes all other systems are reviewed and are negative Constitutional: Constitutional: Reports no additional constitutional complaints, Denies body ache(s), Denies chills, Denies fever(s), Denies headache(s) and Denies weakness Eyes: Eyes: Reports no additional eye complaints and Denies change in vision ENT: Reports system reviewed and no additional complaints, except as documented, Denies dizziness, Denies headache(s), Denies nasal congestion, Denies nasal discharge and Denies neck pain Cardiovascular: Cardiovascular: Reports no additional cardiovascular complaints, Denies chest pain, Denies leg edema and Denies dyspnea Respiratory: Respiratory: Reports no additional respiratory complaints, Denies cough and Denies dyspnea Gastrointestinal: Gastrointestinal: Reports no additional gastrointestinal complaints, Denies abdominal pain, Denies diarrhea, Denies nausea and Denies vomiting Genitourinary: Genitourinary: Reports no additional female genitourinary complaints and Denies urinary incontinence Musculoskeletal: Musculoskeletal: Reports no additional musculoskeletal complaints, Denies back pain, Reports arthralgias, Reports joint swelling, Reports limited range of motion, Denies neck pain, Denies numbness and Denies tingling Integumentary/Breasts: Skin/Breast: Reports system reviewed and no additional complaints, except as docu and Denies rash Neurologic: Reports system reviewed and no additional complaints, except as documented, Denies Abnormal speech present, Denies dizziness, Denies headache(s), Denies numbness, Denies tingling and Denies weakness PMFSH Past Medical History Attestation statement: The following information was validated with the patient. Source: old records reviewed and nursing notes reviewed Medical History Diverticulosis large intestine w/o perforation or abscess w/o bleeding Adenomatous colon polyp Acid reflux HTN (hypertension) Surgical History Hx of endoscopy History of colonoscopy Hx of tonsillectomy Family History Family History Father History of high blood pressure History of diabetes mellitus Mother History of high blood pressure History of diabetes mellitus Social History Social History Household Members Other:: daughter Housing: House Alcohol intake: never Patient Tobacco Use Status: Former Tobacco user Do you have a plan to hurt others: No Plan Current occupational status: employed 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 Sexual orientation: Straight/Heterosexual Gender identity: Female Physical Exam Vital Signs: Vital Signs: Last Vital Signs Temp 98 F 03/04/25 10:24 Pulse 95 03/04/25 10:24 Resp 18 03/04/25 10:24 BP 146/75 H 03/04/25 10:24 Pulse Ox 99 03/04/25 10:24 O2 Del Method Room Air 03/04/25 10:24 BMI result Body Mass Index 29.5 Const: General: cooperative, healthy appearing, comfortable and no acute distress Orientation/consciousness: patient oriented x3 Limitations: no limitations HEENT: Head: Yes normal to inspection Ears: hearing grossly normal bilaterally General nose exam: Normal external nose present Face and sinus: Yes normal facial exam Mouth: Normal oral and palatal mucosa present Throat: Yes posterior oropharynx normal Eyes: General: appearance normal, both eyes and all related structures Pupils: Equal, round and reactive pupils present Neck: Neck: Yes normal visual inspection Chest: Chest palpation & inspection: normal inspection of the chest Resp: Effort & Inspection: normal respiratory effort Auscultation: clear to auscultation bilaterally Cardio: Rate: regular rate Rhythm: regular rhythm Peripheral pulses: Peripheral pulses 2+ throughout GI: Inspection: Yes normal to inspection Palpation (GI): Soft to palpation and nontender Auscultation: normal bowel sounds Back/Spine/Pelvis: Thoracic/Lumbar Spine: thoracic and lumbar spine normal to inspection Skin: General skin exam: no rashes or lesions noted Neuro: General: patient oriented x3, no focal motor deficits and normal sensation to monofilament Cranial nerves: Yes Equal, round and reactive pupils present Cognition (Neuro): normal cognition Speech: No Abnormal speech present Gait exam (Neuro): Normal gait present Motor exam (neuro): 5/5 motor strength present throughout Extrem: Other: There is pain on palpation to the right anterior and superior shoulder. There is pain that is worsened with abduction of the extremity. Normal strength 5/5. No numbness or tingling. 2+ radial and ulnar pulses. Course Course Course Narrative: X-ray shows degenerative changes likely secondary to osteoarthritis. Patient will be started on an anti-inflammatory and a muscle relaxant. Reviewed worrisome signs and symptoms of when to return to the emergency room. Comfortable plan for discharge home. Medical Decision Making Medical Decision Making MDM Narrative: 65 yo female with PMH of HTN, OA, right hand dominant here with complaints of right shoulder pain/swelling x 4 days. No known injury/trauma. Pain radiates from right shoulder to right elbow. No numbness/tingling or weakness of the extremity. There is pain on palpation to the right anterior and superior shoulder. There is pain that is worsened with abduction of the extremity. Normal strength 5/5. No numbness or tingling. 2+ radial and ulnar pulses. Will obtain x-ray Differential Diagnosis Differential Diagnoses: The differential diagnosis associated with the presentation includes Tendonitis, bursitis, arthritis Low suspicion for fracture, dislocation, septic joint Admission/Observation Consideration of admission/observation: Escalation of care including admission/observation considered Independent Interpretation I performed an independent interpretation of an: Plain X-Ray Interpretation: I independently reviewed the x-ray and agree with the radiology report Radiology Impression Discussion of test interpretation with radiology: I have reviewed the radiologist's reading. Radiologist Impression: [address] [address] XRay Report Signed Patient: Elzbieta De La Paz MR#: [id number] : 1960 Acct:[id number] Age/Sex: 65 / F ADM Date: 03/04/25 Loc: HO.ED Attending Dr: Ordering Physician: Leif Pitt DO Date of Service: 03/04/25 Procedure(s): XR shoulder RT min 2V Accession Number(s): [id number] cc: Yumiko Krishna MD; Leif Pitt DO~ Reason for Exam: pain no injury CLINICAL HISTORY: pain no injury 3 view right shoulder Comparison: None provided Findings: No fractures or dislocations. Moderate degenerative changes of the glenohumeral and acromioclavicular joints. No erosions. No radiopaque foreign body. IMPRESSION: Moderate degenerative changes. No acute process. Discharge Plan Discharge Clinical Impression: Osteoarthritis Patient Disposition: Home, Self-Care Instructions: Osteoarthritis (ED) Additional Instructions: Take the medications as prescribed Take them with food Do not take the cyclobenzaprine if you are driving or working Alternate heat or ice as needed Gentle stretching of the shoulder. We do not recommend immobilization with a sling If symptoms continue greater than 5-7 days please follow-up with your primary care doctor as discussed Prescriptions: New naproxen 500 mg tablet 500 mg PO BID PRN (Reason: pain) Qty: 30 0RF cyclobenzaprine 10 mg tablet 10 mg PO Q8H PRN (Reason: muscle spasm) Qty: 15 0RF No Action multivitamin Tablet 1 tab PO DAILY hydrochlorothiazide 25 mg tablet 1 tab PO DAILY losartan 100 mg tablet 1 tab PO DAILY nifedipine 30 mg tablet extended release 24hr 30 mg PO DAILY atorvastatin 10 mg tablet 10 mg PO DAILY Referrals: Yumiko Krishna MD [Primary Care Provider, Internal Medicine] Stand Alone Forms: Work/School Release Print Language: Tajik
--- OUTSIDE RECORDS SUMMARY | 2025-03-04 12:23 | XMS_ITS | Encounter Summary ---
Author Organization [employer] Address [address] [facility] 7t [place] [address] Care Team Providers Care Cotton Agent Name Role Phone Yumiko Krishna MD Primary Care Provider [phone] Reason for Visit * Reason Comments Med Refill Encounter Details Date Type Department Care Team (Late st Contact Info) Description 02/28/2024 Refill [facility] [address] [place], [place] [phone] Nadya Atkinson FNP [address] [place] [address] Hypertension, unspecified type Social History Tobacco Use [...] Description 03/21/2025 9:45 AM EDT Office Visit [facility] [address] [place] [address] Yumiko Krishna MD [address] [place] [address] documented as of this encounter Visit Diagnoses Diagnosis Hypertension, unspecified type documented in this encounter Additional Health Concerns Assessment Noted Time PHQ-9 Depression Total Score: 0 10/11/19 24 2:22 PM EDT documented as of this encounter Care Teams Cotton Agent Relationship Specialty Start Date End Date Yumiko Krishna MD [address] [place] [address] PCP - General Family Medicine 07/30/23 documented as of this encounter
--- OUTSIDE RECORDS SUMMARY | 2025-03-04 12:23 | XMS_ITS | Encounter Summary ---
Author Organization [employer] Address [address] [facility] 7t [place] [address] Care Team Providers Care Retail Reset Merchandiser Name Role Phone Yumiko Krishna MD Primary Care Provider [phone] Encounter Details Date Type Department Care Team (Late st Contact Info) Description 10/27/2024 Orders Only [facility] [address] [place], [place] [phone] Yumiko Krishna MD [address] [place], [place] [phone] Hypertension, unspecified type (Primary Dx); Dyslipidemia; Hair [...] Description 03/21/2025 9:45 AM EDT Office Visit [facility] [address] [place], [place] [phone] Yumiko Krishna MD [address] [place], [place] [phone] Scheduled Orders Name Type Priority Associated Diagnoses [...] 10:31 AM EDT) Triglycerides 53 <150 mg/dL [facility] Comment:Desirable Triglyceri de: less than 150 mg/dLBorderline High Triglyceride 150-199 mg/dLHigh Triglyceride: 200-499 mg/dLVery High Triglyceride: greater than or equal to 5OO mg/dL Cholesterol 159 <200 mg/dL [facility] Comment:Desirable Cholestero l: less than 200 mg/dLBorderline High Cholesterol: 200-239 mg/dLHigh Cholesterol: greater than 239 mg/dL LDL Cholesterol Calculated 91 <100 mg/dL [facility] Comment:Desirable LDL: less than 100 mg/dLNear Optimal/Above Optimal LDL: 110- 129 mg/dLBorderline High LDL: 130-159 mg/dLHigh LDL: 160-189 mg/dLVery High LDL: greater than or equal to 190 mg/dL HDL Cholesterol 58 >40 mg/dL [facility] Comment:Desirable HDL: great er than 40 mg/dL Note: This HDL assay may give artificially low results in patients with liver disease. Blood 11/02/2024 10:3 1 AM EDT 11/02/2024 11:44 AM EDT us Yumiko Krishna MD LAB BLOOD ORDERABLES Final Resul t [facility] [address] [place] [phone] [phone] * (ABNORMAL) Comprehensive Metabolic Panel (11/02/2024 10:31 AM EDT) Sodium 146(H) 135 - 145 mmol/L [facility] Potassium 3.7 3.3 - 5.1 mmol/L [facility] Chloride 107 96 - 108 mmol/L [facility] Carbon Dioxide 31(H) 22 - 29 mmol/L [facility] Anion Gap 12 12 - 20 [facility] Urea Nitrogen (BUN) 14 9 - 16 mg/dL [facility] Creatinine, Serum 0.69 0.5 - 1.4 mg/dL [facility] Estimated Glomerular Filt Rate >60 [facility] Comment:Chronic Kidney Disea se: Estimated GFR < 60 mL/min/1.61h0Pvyngc Kidney Disease: Estimated GFR < 15 mL/min/1.73m2 Glucose 90 60 - 115 mg/dL [facility] Calcium 9.8 8.4 - 10.2 mg/dL [facility] Bilirubin, Total 1.2(H) 0.0 - 1.0 mg/dL [facility] Aspartate Amino Transferase 26 5 - 31 U/L [facility] Alanine Aminotransferase 20 0 - 31 U/L [facility] Total Protein 7.1 6.5 - 8.0 g/dL [facility] Albumin Level 4.2 3.5 - 5.0 g/dL [facility] Alkaline Phosphatase 77 39 - 117 U/L [facility] Blood Venous blood specimen / Unknown 11/02/2024 10:31 AM EDT 11/02/2024 11:44 AM EDT Yumiko Krishna MD LAB BLOOD ORDERABLES Final Resul t [facility] [address] [place] [phone] * Hemoglobin A1c (11/02/2024 10:31 AM EDT) Hemoglobin A1c 5.8 <6.0 % [facility] Comment:Hemoglobin A1C Refer ence Range Adults: 4.8 - 6.0 % Non diabetic: < 6.0 % Goal: < 7.0 %Additional Action Suggested: > 8.0 %Note: Hemoglobin A1c results are invalid for patients with abnormal amounts of HbF. Blood transfusions may impact the HbA1c concentration in the patient sample. Estimated Average Glucose 120 mg/dL [facility] Comment:eAG = Estimated ave rage glucose which is %A1C expressed asaverage glucose, using the formula of the I6Q-SlzwbbfMjgkasx Glucose study (ADAG), Diabetes Care, Vol.31,#8,2007 Blood Venous blood specimen / Unknown 11/02/2024 10:31 AM EDT 11/02/2024 11:46 AM EDT Yumiko Krishna MD LAB BLOOD ORDERABLES Final Resul t Performing Organization Address City/[facility] Co de Phone Number [facility] [address] [place] [phone] [phone] * TSH with Reflex to Free T4 (11/02/2024 10:31 AM EDT) TSH reflex Free T4 1.93 0.32 - 4.0 uIU/mL [facility] Blood 11/02/2024 10:3 1 AM EDT 11/02/2024 11:44 AM EDT us Yumiko Krishna MD LAB BLOOD ORDERABLES Final Resul t Performing Organization Address [facility] Co de Phone Number [facility] [address] [place] [phone] [phone] documented in this encounter Visit Diagnoses Diagnosis Hypertension, unspecified type- Primary Dyslipidemia Other and unspecified hyperlipidemia Hair loss Unspecified alopecia Screening for diabetes mellitus documented in this encounter Additional Health Concerns Assessment Noted Time PHQ-9 Depression Total Score: 0 05/22/20 24 1:03 PM EST documented as of this encounter Care Teams Retail Reset Merchandiser Relationship Specialty Start Date End Date Yumiko Krishna MD [address] [place] [phone] PCP - General Family Medicine 07/30/23 documented as of this encounter
--- OUTSIDE RECORDS SUMMARY | 2025-03-04 12:23 | XMS_ITS | Encounter Summary ---
Author Organization [employer] Address 75 [facility] 7t [place] [address] Care Team Providers Care Bean Roaster Name Role Phone Yumiko Krishna MD Primary Care Provider [phone] Encounter Details Date Type Department Care Team (Late st Contact Info) Description 11/05/2023 Orders Only [facility] MEDICINE [address] [place], [place] [phone] Yumiko Krishna MD [address] [place], [place] [phone] Hypertension, unspecified type Social History Tobacco Use [...] Description 03/21/2025 9:45 AM EDT Office Visit [facility] [address] [place] [phone] Yumiko Krishna MD [address] [place] [phone] documented as of this encounter Visit Diagnoses Diagnosis Hypertension, unspecified type documented in this encounter Additional Health Concerns Assessment Noted Time PHQ-9 Depression Total Score: 0 10/11/19 24 2:22 PM EDT documented as of this encounter Care Teams Bean Roaster Relationship Specialty Start Date End Date Yumiko Krishna MD [address] [place] [phone] PCP - General Family Medicine 07/30/23 documented as of this encounter
--- OUTSIDE RECORDS SUMMARY | 2025-03-04 12:23 | XMS_ITS | Clinical Summary ---
Author Organization [employer] Address [address] [facility] 7t [place] [address] Care Team Providers Care Commutator Assembler Name Role Phone Yumiko Krishna MD Primary Care Provider [phone] Allergies No known active allergies Medications Diclofenac Sodium 1 % gel Apply 2 g topically 4 times daily. 150 g 3 2023 Active lidocaine (Lidoderm) 5 % patchIndications:Chron ic pain of right knee apply 1 patch by transdermal route every day (May wear up to 12hours.) Strength: 5 % 30 patch 3 2023 Active ibuprofen 600 MG tabletIndications:[employer] tamanna pain of right knee TAKE 1 [...] last colonoscopy on 03/08/[address] White, [facility] - cecal polyp and transverse colon [...] presence of risk-enhancing factors. - (IIb, B-R)) VMA=[id number] Do not eat grapefruit or drink grapefruit [...] 03/2025. She has an upcoming appointment with [facility] for a pap. Encounters Date Type Department Care Team Description 03/04/2025 Orders Only [facility] External Provider, [facility] 02/28/2025 Orders Only [facility] [address] [facility] [address] Yumiko Krishna MD 02/22/2025 Orders Only [facility] [address] [facility] [place] [place] [address] Yumiko Krishna MD 02/14/2025 Telephone [facility] [address] [facility] [place] [address] Yumiko Krishna MD Appointment 02/12/2025 Refill [facility] 230 [place] [address] Yumiko Krishna MD Pure hypercholesterolemia 02/09/2025 Refill [facility] [address] [facility] [place] [address] Yumiko Krishna MD Hypertension, unspecified type from [...] Description 03/21/2025 9:45 AM EDT Office Visit [facility] [address] [place], [place] [phone] Yumiko Krishna MD 230 [place] [address] Health Maintenance Due Date Last Done Comments CT Colonography 1960 Dental Oral Exam 1961 Dental Prophylaxis 1961 Dental X-Ray: Bitewings 1961 Dental X-Ray: Full Mouth 1961 FIT DNA/Cologuard 1960 FIT 1960 FOBT 1960 HIV Screening 1960 Sigmoidoscopy 1960 Disability Screening 1961 Pneumococcal Vaccine: 50+ Years (1 of 1 - PCV) 2011 SDOH Screening 10/03/2024 10/04/2023 COVID-19 Vaccine ( - season) 2025 03/26/2022, 06/11/2021, 10/02/2020, Additional [...] Procedure Name Priority Date/Time Associated Diagnosis Comments XR SHOULDER 2+ VIEWS RIGHT Routine 03/04/2025 11:51 AM EDT ALBUMIN, RANDOM URINE W/CREATININE Routine 02/28/2025 10:29 AM EDT BI MAMMOGRAM SCREENING TOMOSYNTHESIS BILATERAL Routine 02/22/2025 [...] Recently Relevant to Health Maintenance Results * XR Shoulder 2+ Views Right (03/04/2025 11:51 AM EDT) Anatomical Region Laterality Modality Upper Extremities, Shoulder Right Radi ographic Imaging 03/04/2025 11:5 1 AM EDT Narrative 03/04/2025 11:51 AM EDT [address] [address] XRay Report Signed Patient: Elzbieta De La Paz MR#: [id number] 61 : 1960 Acct:[id number] Age/Sex: 65 / F ADM Date: 03/04/25 Loc: HO.ED Attending Dr: Ordering Physician: Leif Pitt DO Date of Service: 03/04/25 Procedure(s): XR shoulder RT min 2V Accession Number(s): [id number] cc: Yumiko Krishna MD; Leif Pitt DO Reason for Exam: pain no injury CLINICAL HISTORY: pain no injury 3 view right shoulder Comparison: None provided Findings: No fractures or dislocations. Moderate degenerative changes of the glenohumeral and acromioclavicular joints. No erosions. No radiopaque foreign body. IMPRESSION: Moderate degenerative changes. No acute process. This document has been electronically signed by: Destin Urias MD on 03/04/2025 11:51:01 Dictated By: Destin Urias MD Signed By: <Electronically signed by Destin Urias MD in OV> 03/04/25 1151 DD/ 1151 TD/TT: 03/04/25 1151 Heart Coordinator: Procedure Note Donotuseinterpreter, Image - 03/04/[address] [address] XRay Report Signed Patient: Saima De La PazR#: [id number] 61 : 1960cct:[id number] Age/Sex: 65 / FADM Date: 03/04/25 Loc: HO.ED Attending Dr: Ordering Physician: Leif Pitt DO Date of Service: 03/04/25 Procedure(s): XR shoulder RT min 2V Accession Number(s): [id number] cc: Yumiko Krishna MD; Leif Pitt DO Reason for Exam: pain no injury CLINICAL HISTORY: pain no injury 3 view right shoulder Comparison: None provided Findings: No fractures or dislocations. Moderate degenerative changes of the glenohumeral and acromioclavicular joints. No erosions. No radiopaque foreign body. IMPRESSION: Moderate degenerative changes. No acute process. This document has been electronically signed by: Destin Urias MD on 03/04/2025 11:51:01 Dictated By: Destin Urias MD Signed By: <Electronically signed by Destin Urias MD in OV> 03/04/25 1151 DD/ 1151 TD/TT: 03/04/25 115 Heart Coordinator: [facility] External Provider IMG XR PROCEDURES Final Result * Albumin, Random Urine W/Creatinine (02/28/2025 10:29 AM EDT) Creatinine, Urine 157.93 mg/dL [facility] Microalbumin Urine 17.0 mg/L [facility] Microalbum Creatinine Ratio Ur 10.7 <30 ug/mg cr [facility] Comment:Albumin/Creatinine R atio Reference Ranges: Normal: < 30 ug/mg creatinine Microalbuminuria: 30 - 300 ug/mg creatinineClinical Albuminuria: > 300 ug/mg creatinine 02/28/2025 10:2 9 AM EDT 02/28/2025 11:43 AM EDT Yumiko Krishna MD LAB URINE ORDERABLES Final Resul t [facility] [address] [place] [address] [phone] * BI Mammogram Screening Tomosynthesis Bilateral (02/22/2025 7:37 AM EDT) Anatomical Region Laterality Modality Breast Bilateral Mammography 02/22/2025 7:37 AM EDT Narrative 02/26/2025 12:01 PM EDT [facility] [address] [place] [address] Mammography Report Signed Patient: Elzbieta De La Paz MR#: [id number] 61 : 1960 Acct:[id number] Age/Sex: 65 / F ADM Date: 02/22/25 Loc: HO.MAMMO Attending Dr: Yumiko Krishna MD Ordering Physician: Yumiko Krishna MD Results: 1Negative Date of Service: 02/22/25 Follow Up: 1 Year From Orig inal Mammogram Procedure(s): MM tomosynthesis screening BI Accession Number(s): [id number] cc: Yumiko Krishna MD Reason For Exam: [...] 02/26/25 1157 DD/ 0737 TD/TT: 02/22/25 0747 Heart Coordinator: Procedure Note Donotuseinterpreter, Image - 02/26/[address] [place] [address] Mammography Report Signed Patient: Consuelo De La Paz#: [id number] [birth year] : 1Acct:[id number] Age/Sex: 65 / FADM Date: 02/22/25 Loc: HOTeaganMAMMKurtis Attending Dr: Yumiko Krishna MD Ordering Physician: Yumiko Krishna MDResults: 1Negative Date of Service: 02/22/25Follow Up: 1 Year From Orig inal Mammogram Procedure(s): MM tomosynthesis screening BI Accession Number(s): [id number] cc: Yumiko Krishna MD Reason For Exam: [...] 02/26/25 1157 DD/ 0737 TD/TT: 02/22/25 0747 Heart Coordinator: us Yumiko Krishna MD IMG BI PROCEDURES Final Result * Lipid Panel with Reflex to Direct LDL (11/02/2024 10:31 AM EDT) Triglycerides 53 <150 mg/dL [facility] Comment:Desirable Triglyceri de: less than 150 mg/dLBorderline High Triglyceride 150-199 mg/dLHigh Triglyceride: 200-499 mg/dLVery High Triglyceride: greater than or equal to 5OO mg/dL Cholesterol 159 <200 mg/dL [facility] Comment:Desirable Cholestero l: less than 200 mg/dLBorderline High Cholesterol: 200-239 mg/dLHigh Cholesterol: greater than 239 mg/dL LDL Cholesterol Calculated 91 <100 mg/dL [facility] Comment:Desirable LDL: less than 100 mg/dLNear Optimal/Above Optimal LDL: 110- 129 mg/dLBorderline High LDL: 130-159 mg/dLHigh LDL: 160-189 mg/dLVery High LDL: greater than or equal to 190 mg/dL HDL Cholesterol 58 >40 mg/dL [facility] Comment:Desirable HDL: great er than 40 mg/dL Note: This HDL assay may give artificially low results in patients with liver disease. Blood 11/02/2024 10:3 1 AM EDT 11/02/2024 11:44 AM EDT us Yumiko Krishna MD LAB BLOOD ORDERABLES Final Resul t [facility] [address] [place] [phone] * Hemoglobin A1c (11/02/2024 10:31 AM EDT) Hemoglobin A1c 5.8 <6.0 % [facility] Comment:Hemoglobin A1C Refer ence Range Adults: 4.8 - 6.0 % Non diabetic: < 6.0 % Goal: < 7.0 %Additional Action Suggested: > 8.0 %Note: Hemoglobin A1c results are invalid for patients with abnormal amounts of HbF. Blood transfusions may impact the HbA1c concentration in the patient sample. Estimated Average Glucose 120 mg/dL [facility] Comment:eAG = Estimated ave rage glucose which is %A1C expressed asaverage glucose, using the formula of the K3S-TpudozoYaqzkcp Glucose study (ADAG), Diabetes Care, Vol.31,#8,Jan. 2007 Blood Venous blood specimen / Unknown 11/02/2024 10:31 AM EDT 11/02/2024 11:46 AM EDT Yumiko Krishna MD LAB BLOOD ORDERABLES Final Resul t Performing Organization Address [facility]/ZIP Co de Phone Number [facility] [address] [place] [address] [phone] * HPV mRNA E6/E7 w/Reflex to HPV Genotypes 16, 18/45 (03/09/2023 12:49 PM EDT) HPV nRNA E6/E7 Not Detected Not Detected [facility] Comment:Methodology: Transcr iption-Mediated AmplificationThis assay detects E6/E7 viral messenger RNA (mRNA) from 14high-risk HPV types (16,18,31,33,35,39,45,51,52,56,58,59,66,68).Cervical sources are required for HPV testing.If a vaginal source from a patient who has had atotal hysterectomy with removal of cervix wassubmitted, please contact the testing laboratoryfor alternative testing options.For additional information, please refer tohttp://education.Kofax/faq/GCO809z3(This link if provided for information/educational purposes only.)THIS TEST WAS PERFORMED AT:[facility] [place] [phone] ROMERO MD HPV mRNA E6/E7 TNP [facility] HPV 16 RNA [facility] HPV 18/45 RNA [facility] 03/09/2023 12:4 9 PM EDT 03/09/2023 1:40 PM EDT us [facility] External Provider LAB CYT OLOGY ORDERABLES Final Result Performing Organization Address City/[facility]/ZIP Co de Phone Number [facility] [address] [place] [phone] * Pap Smear (03/09/2023 12:49 PM EDT) 03/09/2023 12:4 9 PM EDT 03/09/2023 1:40 PM EDT [facility] - 03/12/2023 11:18 AM EDT ----- ------- Name: Elzbieta De La Paz Age/Sex: 63/F : 1960 Unit#: [id number] Attend Dr: Alexis Fernandez MD Re03/09/23 Status: DEP [facility] ----- ------- SPEC : [id number] RECD: 03/09/23 STATUS: DAVID HOLT NUM: [id number] SHIVANI: 03/09/[address] [facility] [address]: Alexis Fernandez MD ENTERED: 03/09/232704 SP TYPE: Pap Smr OTHR DR: Mukesh Vincent NP ORDERED: Pap Smear Interpretation Satisfactory for evaluation. Atrophic. Negative for intraepithelial lesion or malignancy. HPV mRNA E6/E7: NOT DETECTED This assay detects E6/E7 viral messenger RNA (mRNA) from 14 high-risk HPV types (16, 18, 31, 33, 35, 39, 45, 51, 52, 56, 58, 59, 66, 68) HPV testing performed by [facility], [place], [place]. See reference laboratory pion of the EMR for entire report. Clinical Information LMP: Postmenopausal Previous PAP test: 2019, Unknown findings Material Received ThinPrep-Cervical Copies To: Mukesh Vincent NP [address] [address] Alexis Fernandez MD [address] [place] [address] Dr. Cabrera [address] [place] [address] ----- ------- Signed (signature on file) RUBEN Mercedes ([facility]) 03/12/23 1118 ----- ------- END OF REPORT [facility] External Provider LAB [facility] ORDERABLES Final Result [facility] [address] [place] [address] [phone] * Hepatitis C Antibody with Reflex to HCV, RNA, Quantitative, Real-Time PCR (07/03/2022 9:43 AM EST) Hepatitis C Antibody NON-REACT GRABIEL NON-REACT GRABIEL [facility] [place] Index <0.02 <1.00 [facility] [place] [facility] Comment: HCV antibody was non-reactive. There is no laboratory evidence of HCV infection. In most cases, no further action is required. However, if recent HCV exposure is suspected, a test for HCV RNA (test code 55241) is suggested. For additional information please refer to http://education.Kofax/faq/ZOJ85m2 (This link is being provided for informational/ educational purposes only.) Blood Venous blood specimen / Unknown 07/03/2022 9:43 AM EST 07/03/2022 9:43 AM EST Narrative [facility] - 07/04/2022 12:47 AM EST FASTING:YES FASTING: YES Mukesh HENRY LAB BLOOD ORDERABLES Final Res ult [facility] [address] [facility], [place] [phone] [facility] [address] [facility], (N[address]) [place] [address] * Hm Colonoscopy (03/08/2020) Colonoscopy Normal Normal Narrative Tamika Jefferson - 03/08/2020 Recommended 5 year follow up Historical Provider MD HEALTH MAINTENANCE Final Result from Last 3 Months or Most Recently Relevant to Health Maintenance Insurance AENA O Care Teams Commutator Assembler Relationship Specialty Start Date End Date Yumiko Krishna MD [address] [place] [phone] PCP - General Family Medicine 07/30/23
--- OUTSIDE RECORDS SUMMARY | 2025-03-04 12:23 | XMS_ITS | Encounter Summary ---
Author Organization [employer] Address [address] [place] [address] 7t [place] [address] Care Team Providers Care Flying I Instructor Name Role Phone Mukesh Vincent CARL Primary Care Provider Unavail able Yumiko Krishna MD Primary Care Provider [phone] Reason for Visit * Reason Onset Date Comments Med Refill 11/24/2022 Encounter Details Date Type Department Care Team (Late st Contact Info) Description 11/24/2022 Refill [facility] [address] [place] [address] [phone] Maia Leyva FNP Hypertension, unspecified type Social [...] Description 03/21/2025 9:45 AM EDT Office Visit [facility] [address] [place] [address] [phone] Yumiko Krishna MD [address] [place], [place] [phone] documented as of this encounter Visit Diagnoses Diagnosis Hypertension, unspecified type documented in this encounter Additional Health Concerns Assessment Noted Time PHQ-9 Depression Total Score: 0 06/26/19 1:17 PM EST documented as of this encounter Care Teams Flying I Instructor Relationship Specialty Start Date End Date Mukesh Vincent AGNP PCP - General Family Medicine 06/12/22 02/18/23 Yumiko Krishna MD [address] [place] [phone] PCP - General Family Medicine 07/30/23 documented as of this encounter
--- OUTSIDE RECORDS SUMMARY | 2025-03-04 12:23 | XMS_ITS | Encounter Summary ---
Author Organization [employer] Address [address] [facility] 7t [place] [address] Care Team Providers Care Medical Research Assistant Name Role Phone Yumiko Krishna MD Primary Care Provider [phone] Encounter Details Date Type Department Care Team (Late st Contact Info) Description 04/16/2023 Abstract [facility] [address] [place] [address] Tamika Jefferson Social History Tobacco Use Types [...] Description 03/21/2025 9:45 AM EDT Office Visit [facility] [address] [place] [address] Yumiko Krishna MD 230 [place], [place] [phone] documented as of this encounter Procedures Procedure [...] documented as of this encounter Care Teams Medical Research Assistant Relationship Specialty Start Date End Date Yumiko Krishna MD [address] [place], [place] [phone] PCP - General Family Medicine 07/30/23 documented as of this encounter
--- OUTSIDE RECORDS SUMMARY | 2025-03-04 12:23 | XMS_ITS | Encounter Summary ---
Author Organization [employer] Address [address] [facility] 7t [place] [address] Care Team Providers Care Mobile Disc Jockey Name Role Phone Yumiko Krishna MD Primary Care Provider [phone] Reason for Visit * Reason Comments Med Refill Encounter Details Date Type Department Care Team (Late st Contact Info) Description 08/10/2023 Refill [facility] [address] [place], [place] [phone] Nadya Atkinson FNP [address] [place] [address] Hypertension, unspecified type Social History Tobacco Use [...] 03/21/2025 9:45 AM EDT Office Visit [facility] [address] [place] [phone] Yumiko Krishna MD [address] [place] [phone] documented as of this encounter Visit Diagnoses Diagnosis Hypertension, unspecified type documented in this encounter Additional Health Concerns Assessment Noted Time PHQ-9 Depression Total Score: 0 06/26/19 23 1:17 PM EST documented as of this encounter Care Teams Mobile Disc Jockey Relationship Specialty Start Date End Date Yumiko Krishna MD [address] [place] [phone] PCP - General Family Medicine 07/30/23 documented as of this encounter
--- OUTSIDE RECORDS SUMMARY | 2025-03-04 12:23 | XMS_ITS | Encounter Summary ---
Author Organization [employer] Address [address] [facility] 7t [place] [address] Care Team Providers Care Dean Of Chapel Name Role Phone Yumiko Krishna MD Primary Care Provider [phone] Reason for Referral * Consultation (Urgent) - Closed Specialty Diagnoses / Procedures Referred By Sharlene cordero Referred To Contact Orthopaedic Surgery Diagnoses Chronic pain of left knee Yumiko Krishna MD [address] [place] [address] Phone: tel: fax: [facility] [address] [place] [address] Phone: tel: Referral ID Status Reason Start Date Expiration Date V isits Requested Visits Authorized [id number] Closed Specialty Services Required 01/10/2024 01/09/2025 1 1 Encounter Details Date Type Department Care Team (Late st Contact Info) Description 01/10/2024 Orders Only [facility] [address] [place], [place] [phone] Yumiko Krishna MD [address] [place], [place] [phone] Chronic pain of left knee (Primary Dx) [...] Description 03/21/2025 9:45 AM EDT Office Visit [facility] [address] [place] [address] Yumiko Krishna MD [address] [place] [address] Scheduled Referrals Name Type Priority Associated Diagnoses [...] documented as of this encounter Care Teams Dean Of Chapel Relationship Specialty Start Date End Date Yumiko Krishna MD [address] [place] [address] PCP - General Family Medicine 07/30/23 documented as of this encounter
--- OUTSIDE RECORDS SUMMARY | 2025-03-04 12:23 | XMS_ITS | Encounter Summary ---
Author Organization [employer] Address [address] [facility] 7t [place] [address] Care Team Providers Care Heating Element Repairer Name Role Phone Yumiko Krishna MD Primary Care Provider [phone] Encounter Details Date Type Department Care Team ([facility] st Contact Info) Description 03/04/2025 Orders Only [facility] External Provider, [facility] Social History Tobacco Use Types Packs/Day Years [...] Description 03/21/2025 9:45 AM EDT Office Visit [facility] [address] [place] [address] Yumiko Krishna MD [address] [place], [place] [phone] documented as of this encounter Procedures Procedure Name Priority Date/Time Associated Diagnosis Comments XR SHOULDER 2+ VIEWS RIGHT Routine 03/04/2025 11:51 AM EDT documented in this encounter Results * XR Shoulder 2+ Views Right (03/04/2025 11:51 AM EDT) Anatomical Region Laterality Modality Upper Extremities, Shoulder Right Radi ographic Imaging 03/04/2025 11:5 1 AM EDT Narrative 03/04/2025 11:51 AM EDT [facility] [address] [place] [address] XRay Report Signed Patient: Elzbieta De La Paz MR#: [id number] 61 : 1960 Acct:[id number] Age/Sex: 65 / F ADM Date: 03/04/25 Loc: .ED Attending Dr: Ordering Physician: Leif Pitt DO Date of Service: 03/04/25 Procedure(s): XR shoulder RT min 2V Accession Number(s): [id number] cc: Yumiko Krishna MD; Leif Pitt DO [...] by Destin Urias MD in OV> 03/04/25 115 DD/ 50 TD/TT: 03/04/251150 Par[employer] Ticket Seller: Procedure Note Donotuseinterpreter, Image - 03/04/[address] [address] XRay Report Signed Patient: Consuelo De La Paz#: [id number] 61 : 1960cct:[id number] Age/Sex: 65 / FADM Date: 03/04/25 Loc: HO.ED Attending Dr: Ordering Physician: Leif Pitt DO Date of Service: 03/04/25 Procedure(s): XR shoulder RT min 2V Accession Number(s): [id number] cc: Yumiko Krishna MD; Leif Pitt DO [...] by Destin Urias MD in OV> 03/04/25 115 DD/ 50 TD/TT: 03/04/251150 Parimutuel Ticket Seller: [facility] External Provider IMG XR PROCEDURES Final Result documented in this encounter Visit Diagnoses Not on filedocumented in this encounter Additional Health Concerns Assessment Noted Time PHQ-9 Depression Total Score: 0 05/22/20 24 1:03 PM EST documented as of this encounter Care Teams Heating Element Repairer Relationship Specialty Start Date End Date Yumiko Krishna MD [address] [place] [id number] PCP - General Family Medicine 07/30/23 documented as of this encounter
--- OUTSIDE RECORDS SUMMARY | 2025-03-04 12:23 | XMS_ITS | Encounter Summary ---
Author Organization [employer] Address [address] [facility] 7t [place] [address] Care Team Providers Care Abatement Worker Name Role Phone Yumiko Krishna MD Primary Care Provider [phone] Encounter Details Date Type Department Care Team (Late st Contact Info) Description 01/10/[address] [facility] [address] [place], [place] [phone] Yumiko Krishna MD [address] [place], [place] [phone] Social History Tobacco Use Types Packs/Day Years [...] 03/21/2025 9:45 AM EDT Office Visit [facility] [address] [place] [address] Yumiko Krishna MD [address] [place] [address] documented as of this encounter Visit Diagnoses Not on filedocumented in this encounter Additional Health Concerns Assessment Noted Time PHQ-9 Depression Total Score: 0 10/11/19 24 2:22 PM EDT documented as of this encounter Care Teams Abatement Worker Relationship Specialty Start Date End Date Yumiko Krishna MD [address] [place] [address] PCP - General Family Medicine 07/30/23 documented as of this encounter
--- OUTSIDE RECORDS SUMMARY | 2025-03-04 12:23 | XMS_ITS | Encounter Summary ---
Author Organization [employer] Address [address] [facility] 7t [place] [address] Care Team Providers Care Safety Assistant Name Role Phone Yumiko Krishna MD Primary Care Provider [phone] Encounter Details Date Type Department Care Team (Late st Contact Info) Description 02/28/2025 Orders Only [facility] [address] [place], [place] [phone] Yumiko Krishna MD [address] [place], [place] [phone] Social History Tobacco Use Types Packs/Day Years [...] EDT Office Visit [facility] [address] [place] [address] Yumiko Krishna MD [address] [place] [address] documented as of this encounter Procedures Procedure Name Priority Date/Time Associated Diagnosis Comments ALBUMIN, RANDOM URINE W/CREATININE Routine 02/28/2025 10:29 AM EDT documented in this encounter Results * Albumin, Random Urine W/Creatinine (02/28/2025 10:29 AM EDT) Creatinine, Urine 157.93 mg/dL [facility] Microalbumin Urine 17.0 mg/L [facility] Microalbum Creatinine Ratio Ur 10.7 <30 ug/mg cr [facility] Comment:Albumin/Creatinine R atio Reference Ranges: Normal: < 30 ug/mg creatinine Microalbuminuria: 30 - 300 ug/mg creatinineClinical Albuminuria: > 300 ug/mg creatinine 02/28/2025 10:2 9 AM EDT 02/28/2025 11:43 AM EDT us Yumiko Krishna MD LAB URINE ORDERABLES Final Resul t [facility] [address] [place] [address] [phone] documented in this encounter Visit Diagnoses Not on filedocumented in this encounter Additional Health Concerns Assessment Noted Time PHQ-9 Depression Total Score: 0 05/22/20 1:03 PM EST documented as of this encounter Care Teams Safety Assistant Relationship Specialty Start Date End Date Yumiko Krishna MD [address] [place] [address] PCP - General Family Medicine 07/30/23 documented as of this encounter
--- OUTSIDE RECORDS SUMMARY | 2025-03-04 12:23 | XMS_ITS | Encounter Summary ---
Author Organization [employer] Address [address] [facility] 7t [place] [address] Care Team Providers Care Certified Drug Counselor Name Role Phone Yumiko Krishna MD Primary Care Provider [phone] Reason for Visit * Reason Onset Date Comments Med Refill 03/02/2024 Encounter Details Date Type Department Care Team ([facility] st Contact Info) Description 03/02/2024 Refill [facility] [address] [place], [place] [phone] Yumiko Krishna MD [address] [place], [place] [phone] Hypertension, unspecified type Social History Tobacco Use [...] Description 03/21/2025 9:45 AM EDT Office Visit [facility] [address] [place] [phone] Yumiko Krishna MD [address] [place] [address] documented as of this encounter Visit Diagnoses Diagnosis Hypertension, unspecified type documented in this encounter Additional Health Concerns Assessment Noted Time PHQ-9 Depression Total Score: 0 10/11/19 24 2:22 PM EDT documented as of this encounter Care Teams Certified Drug Counselor Relationship Specialty Start Date End Date Yumiko Krishna MD [address] [place] [phone] PCP - General Family Medicine 07/30/23 documented as of this encounter
[2025-03-04 12:31] VITALS: BP 146/75; PULSE 95; RESP 18; TEMP 36.6; O2SAT 99
== END 2025-03-04 12:32 | disposition home or self-care (01) ==
LOC: HO.ED 12:20
PROVIDERS: Emergency Provider Emergency Medicine; PCP Family Medicine
DX: M19.011 Primary osteoarthritis, right shoulder (principal); M25.511 Pain in right shoulder; Z87.891 Personal history of nicotine dependence
CPT/HCPCS: 73030; 99282; 99283

== ENCOUNTER → 2025-03-04 10:39 | Outpatient (BNV) | payer OTHER, SELFPAY | PROVIDERS: Emergency Provider Emergency Medicine; PCP Family Medicine; Visit Provider Radiology Vascular & Interventional Radiology | DX: M19.011 Primary osteoarthritis, right shoulder (principal) | CPT/HCPCS: 73030 ==